=== PATIENT | female | born 1955 | race Caucasian/White ===

== ENCOUNTER 2021-02-25 14:52 | Outpatient (REF) | payer MEDICARE, SELFPAY ==
--- NOTE | ~2021-02-25 | MM_ITS ---
EXAMINATION: MM SCREENING DIGITAL BREAST TOMOSYNTHESIS, BILATERAL CLINICAL INFORMATION: Screening. Asymptomatic. The lifetime risk of breast cancer based on the Tyrer-Cuzick Model is 7%. COMPARISON: Mammography: 12/23/2019, 12/17/2018, 11/21/2017 TECHNIQUE: Digital breast tomosynthesis is performed in both the craniocaudal and mediolateral oblique views along with computer-aided detection (CAD). Synthesized 2D images are generated from the tomosynthesis. FINDINGS: There are scattered areas of fibroglandular density (ACR BI-RADS breast composition Category b). There are no significant masses, abnormal calcifications, or other abnormalities. Parenchymal pattern is similar to prior exams. The axilla and skin contours are unremarkable. MM/MM tomosynthesis screening BI IMPRESSION: No mammographic evidence of malignancy. ASSESSMENT: BI-RADS 1: Negative RECOMMENDATION: Routine annual mammography screening. This patient's information was entered into a reminder system with a target due date for their next mammogram.
== END 2021-02-25 14:53 | disposition home or self-care (01) ==
LOC: HO.MAMMO 14:52
PROVIDERS: Visit Provider Internal Medicine
DX: Z12.31 Encounter for screening mammogram for malignant neoplasm of breast (principal)
CPT/HCPCS: 77063; 77067

== ENCOUNTER 2021-03-28 07:51 | Outpatient (REF) | payer MEDICARE, SELFPAY ==
[2021-03-28 08:40] LABS: MANUAL DIFF FLAG NO
[2021-03-28 08:57] LABS: Basophils Percent Auto 0.6 % (0-2); Eosinophils Absolute Auto 0.1 X10*3/uL (0.0-0.4); Eosinophils Percent Auto 1.4 % (0-4); Hematocrit 37.4 % (37-47); Hemoglobin 11.9 g/dl (12.0-16.0); Imm Gran Abs Auto 0.01 X10*3/uL (0.00-0.03); Imm Gran Pct Auto 0.3 % (0.0-0.4); Lymphocytes Absolute Auto 1.1 X10*3/uL (1.2-4.9); Lymphocytes Percent Auto 31.4 % (20-40); Mean Corpuscular HGB Conc 31.8 g/dl (31.0-35.0); Mean Corpuscular Hemoglobin 30.5 pg (27.0-33.0); Mean Corpuscular Volume 95.9 fL (80-98); Mean Platelet Volume 11.6 fL (9.4-12.3); Monocytes Absolute Auto 0.3 X10*3/uL (0.1-1.2); Monocytes Percent Auto 8.5 % (2-11); Neutrophils Percent Auto 57.8 % (45-73); Platelet Count 113 X10*3/uL (160-400); Red Cell Distribution Width 12.4 % (11.0-16.0); White Blood Count 3.5 X10*3/uL (4.8-10.8)
[2021-03-28 09:07] LABS: Alanine Aminotransferase 14 U/L (0-31); Albumin Level 4.1 g/dL (3.5-5.0); Alkaline Phosphatase 94 U/L (39-117); Anion Gap 9 (12-20); Aspartate Amino Transferase 24 U/L (5-31); Bilirubin Total 0.9 mg/dL (0.0-1.0); Blood Urea Nitrogen 14 mg/dL (9-16); Carbon Dioxide 29 mmol/L (22-29); Chloride 106 mmol/L (96-108); Cholesterol 222 mg/dL; Estimated Glomerular Filt Rate > 60; Glucose Fasting 89 mg/dL (60-99); HDL Cholesterol 76 mg/dL; LDL Cholesterol Calculated 137 mg/dl; Potassium 3.8 mmol/L (3.3-5.1); Sodium 140 mmol/L (135-145); Triglycerides 49 mg/dL
[2021-03-28 09:19] LABS: Glucose Urine UA NEG (NEG); Leukocyte Esterase Urine NEG (NEG); Nitrite Urine NEG (NEG); Specific Gravity - Urine 1.025 (1.005-1.025); Urine Blood 1+ (NEG); Urine Ketones NEG (NEG); Urine Protein TRACE MG/DL (NEG-TRACE)
[2021-03-28 09:20] LABS: TSH reflex Free T4 2.18 uIU/mL (0.32-4.0)
[2021-03-28 09:20] LABS: Appearance Urine HAZY; Color Urine YELLOW
[2021-03-28 09:33] LABS: Bacteria Urine TRACE /LPF; Mucus Urine 1+ /LPF; Squamous Epithelial Cell Urine 1+ /LPF; WBC Urine 0 /HPF (0-4)
== END 2021-03-28 07:52 | disposition home or self-care (01) ==
LOC: HO.LAB 07:51
PROVIDERS: PCP Internal Medicine; Visit Provider Internal Medicine
DX: Z00.01 Encounter for general adult medical examination with abnormal findings (principal); U07.1 COVID-19; R42 Dizziness and giddiness
CPT/HCPCS: 36415; 80053; 80061; 81001; 84443; 85025

== ENCOUNTER → 2021-04-04 15:49 | Outpatient (BNV) | payer MEDICARE, OTHER, SELFPAY | PROVIDERS: PCP Internal Medicine; Referring Provider Internal Medicine; Visit Provider Internal Medicine | DX: D69.6 Thrombocytopenia, unspecified (principal); D61.818 Other pancytopenia | CPT/HCPCS: 99213 ==

== ENCOUNTER → 2021-05-03 14:45 | Outpatient (BNVA) | payer MEDICARE, SELFPAY | PROVIDERS: PCP Internal Medicine; Visit Provider Advanced Practice Midwife ==

== ENCOUNTER 2022-03-03 10:54 | Outpatient (REF) | payer OTHER, SELFPAY ==
--- NOTE | ~2022-03-03 | MM_ITS ---
EXAMINATION: MM SCREENING DIGITAL BREAST TOMOSYNTHESIS, BILATERAL CLINICAL INFORMATION: Screening. Asymptomatic. The lifetime risk of breast cancer based on the Tyrer-Cuzick Model is 5%. COMPARISON: Mammography: 02/25/2021, 12/23/2019, 12/17/2018 TECHNIQUE: Digital breast tomosynthesis is performed in both the craniocaudal and mediolateral oblique views along with computer-aided detection (CAD). Synthesized 2D images are generated from the tomosynthesis. FINDINGS: There are scattered areas of fibroglandular density (ACR BI-RADS breast composition Category b). There are no significant masses, abnormal calcifications, or other abnormalities. Parenchymal pattern is similar to prior exams. No developing density. The axilla and skin contours are unremarkable. No significant changes. MM/MM tomosynthesis screening BI IMPRESSION: No mammographic evidence of malignancy. ASSESSMENT: BI-RADS 1: Negative RECOMMENDATION: Routine annual mammography screening. This patient's information was entered into a reminder system with a target due date for their next mammogram.
== END 2022-03-03 10:55 | disposition home or self-care (01) ==
LOC: HO.MAMMO 10:54
PROVIDERS: PCP Internal Medicine; Visit Provider Internal Medicine
DX: Z12.31 Encounter for screening mammogram for malignant neoplasm of breast (principal)
CPT/HCPCS: 77063; 77067

== ENCOUNTER 2022-03-27 08:36 | Outpatient (REF) | payer OTHER, SELFPAY ==
[2022-03-27 11:09] LABS: MANUAL DIFF FLAG NO
[2022-03-27 11:19] LABS: Basophils Percent Auto 0.5 % (0-2); Eosinophils Absolute Auto 0.1 X10*3/uL (0.0-0.4); Eosinophils Percent Auto 1.5 % (0-4); Hematocrit 37.2 % (37.0-47.0); Hemoglobin 11.8 g/dl (12.0-16.0); Imm Gran Abs Auto 0.01 X10*3/uL (0.00-0.03); Imm Gran Pct Auto 0.2 % (0.0-0.4); Lymphocytes Absolute Auto 1.1 X10*3/uL (1.2-4.9); Lymphocytes Percent Auto 26.6 % (20-40); Mean Corpuscular HGB Conc 31.7 g/dl (31.0-35.0); Mean Corpuscular Hemoglobin 30.3 pg (27.0-33.0); Mean Corpuscular Volume 95.4 fL (80.0-98.0); Mean Platelet Volume 12.3 fL (9.4-12.3); Monocytes Absolute Auto 0.4 X10*3/uL (0.1-1.2); Monocytes Percent Auto 10.1 % (2-11); Neutrophils Absolute Auto 2.5 x10*3/uL (2.0-8.3); Neutrophils Percent Auto 61.1 % (45-73); Platelet Count 133 X10*3/uL (160-400); Red Cell Distribution Width 12.8 % (11.0-16.0); White Blood Count 4.1 X10*3/uL (4.8-10.8)
[2022-03-27 12:03] LABS: Alanine Aminotransferase 15 U/L (0-31); Albumin Level 4.3 g/dL (3.5-5.0); Alkaline Phosphatase 108 U/L (39-117); Anion Gap 15 (12-20); Aspartate Amino Transferase 23 U/L (5-31); Bilirubin Total 0.5 mg/dL (0.0-1.0); Blood Urea Nitrogen 14 mg/dL (9-16); Calcium 9.2 mg/dL (8.4-10.2); Carbon Dioxide 27 mmol/L (22-29); Chloride 104 mmol/L (96-108); Cholesterol 219 mg/dL; Estimated Glomerular Filt Rate > 60; Glucose Fasting 87 mg/dL (60-99); HDL Cholesterol 67 mg/dL; LDL Cholesterol Calculated 142 mg/dl; Potassium 4.7 mmol/L (3.3-5.1); Sodium 141 mmol/L (135-145); Total Protein 7.6 g/dL (6.5-8.0); Triglycerides 53 mg/dL
[2022-03-27 12:04] LABS: TSH reflex Free T4 2.04 uIU/mL (0.32-4.0)
[2022-03-31 12:02] LABS: Vitamin D 25-OH, D2 <4 ng/mL; Vitamin D 25-OH, D3 25 ng/mL; Vitamin D 25-OH, Total 25 ng/mL (30-100)
== END 2022-03-27 08:37 | disposition home or self-care (01) ==
LOC: HO.HMGCLDS 08:36
PROVIDERS: PCP Internal Medicine; Visit Provider Internal Medicine
DX: Z00.01 Encounter for general adult medical examination with abnormal findings (principal); L81.7 Pigmented purpuric dermatosis
CPT/HCPCS: 36415; 80053; 80061; 82306; 84443; 85025

== ENCOUNTER 2022-11-07 12:46 | Outpatient (REF) | payer OTHER, SELFPAY ==
--- NOTE | ~2022-11-07 | MM_ITS ---
EXAMINATION: BONE DENSITOMETRY CLINICAL INDICATION: Menopause. COMPARISON: This is the patient's baseline examination. TECHNIQUE: Using a [employer] DXA System (software version: 13.1) manufactured by [employer], dual-energy x-ray absorptiometry was performed of the lumbar spine and left hip. The images are of good technical quality. Summary results are attached. FINDINGS: AP SPINE L1-L4: BMD 0.935 g/cm2, Z-score 1.0, T-score -2.0, osteopenia. LEFT FEMUR, NECK: BMD 1.001 g/cm2, Z-score 0.9, T-score -0.3, normal. LEFT FEMUR, TOTAL: BMD 0.950 g/cm2, Z-score 0.4, T-score -0.5, normal. IDENTIFIED RISK FACTORS: Early menopause, height loss, secondary osteoporosis. HISTORY OF FRACTURE: None listed. MEDICATIONS: Multivitamin, vitamin D. MM/XR DEXA axial skeleton IMPRESSION: 1. DIAGNOSIS: Osteopenia based on the lowest T-score value of -2.0 in the lumbar spine applying World Health Organization criteria. 2. 10-YEAR FRACTURE RISK PREDICTION, FRAX: Major osteoporotic fracture (clinical spine, forearm, hip or shoulder) 4.0%. Hip fracture 0.2%. 3. Treatment Recommendations: NOF guidelines recommend consideration for treatment in postmenopausal women and men age 50 and older presenting with the following: -A hip or vertebral (clinical or morphometric) fracture. -T-score less than or equal to -2.5 at the femoral neck or spine after appropriate evaluation to exclude secondary causes. -Low bone mass at the hip or spine and a 10-year fracture probability by FRAX of greater than or equal to 3% for hip fracture or greater than or equal to 20% for major osteoporotic fracture based on the [place] adapted WHO algorithm. 4. Other Recommendations: All treatment decisions require clinical judgment and consideration of individual patient factors, including patient preferences, comorbidities, previous drug use, risk factors not captured in the FRAX model (e.g. frailty, falls, vitamin D deficiency, increased bone turnover, interval significant decline in bone density) and possible under or overestimation of fracture risk by FRAX. Additional medical evaluation for secondary cause of low bone mineral density may be appropriate. FUTURE SCAN RECOMMENDATION: People with diagnosed cases of osteoporosis or at high risk for fracture should have regular bone mineral density tests. For patients eligible for Medicare, routine testing is allowed once every 2 years. The testing frequency can be increased to one year for patients who have rapidly progressing disease, those who are receiving or discontinuing medical therapy to restore bone mass, or have additional risk factors.
== END 2022-11-07 12:47 | disposition home or self-care (01) ==
LOC: HO.MAMMO 12:46
PROVIDERS: PCP Internal Medicine; Visit Provider Advanced Practice Midwife
DX: Z13.820 Encounter for screening for osteoporosis (principal); Z78.0 Asymptomatic menopausal state
CPT/HCPCS: 77080

== ENCOUNTER 2023-03-16 14:53 | Outpatient (REF) | payer OTHER, SELFPAY ==
--- NOTE | ~2023-03-16 | MM_ITS ---
EXAMINATION: MM SCREENING DIGITAL BREAST TOMOSYNTHESIS, BILATERAL CLINICAL INFORMATION: Screening. Asymptomatic. The lifetime risk of breast cancer based on the Tyrer-Cuzick Model is 4%. COMPARISON: Mammography: 03/03/2022, 02/25/2021, 12/23/2019 TECHNIQUE: Digital breast tomosynthesis is performed in both the craniocaudal and mediolateral oblique views along with computer-aided detection (CAD). Synthesized 2D images are generated from the tomosynthesis. Additional left CC view is provided. FINDINGS: There are scattered areas of fibroglandular density (ACR BI-RADS breast composition Category b). There are no significant masses, abnormal calcifications, or other abnormalities. Parenchymal pattern is similar to prior studies. There is no developing density or architectural abnormality. The axilla and skin contours are unremarkable. No significant changes. MM/MM tomosynthesis screening BI IMPRESSION: No mammographic evidence of malignancy. ASSESSMENT: BI-RADS 1: Negative RECOMMENDATION: Routine annual mammography screening. This patient's information was entered into a reminder system with a target due date for their next mammogram.
== END 2023-03-16 14:54 | disposition home or self-care (01) ==
LOC: HO.MAMMO 14:53
PROVIDERS: Visit Provider Internal Medicine
DX: Z12.31 Encounter for screening mammogram for malignant neoplasm of breast (principal)
CPT/HCPCS: 77063; 77067

== ENCOUNTER 2023-10-02 12:28 | Outpatient (REF) | payer OTHER, SELFPAY ==
[2023-10-06 00:48] LABS: HPV 16 RNA NOT DETECTED (NOT DETECTED); HPV mRNA E6/E7 rflx Detected (Not Detected)
== END 2023-10-02 12:29 | disposition home or self-care (01) ==
LOC: HO.LNP 12:28
PROVIDERS: PCP Internal Medicine; Visit Provider Advanced Practice Midwife
DX: Z01.419 Encounter for gynecological examination (general) (routine) without abnormal findings (principal); Z11.51 Encounter for screening for human papillomavirus (HPV); N95.9 Unspecified menopausal and perimenopausal disorder
CPT/HCPCS: 87624; 87625; 88142

== ENCOUNTER 2023-10-02 12:28 | Outpatient (AMB) | payer OTHER, SELFPAY ==
--- NOTE | 2023-10-02 13:01 | MHC.OFFVIS ---
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 She is doing well with no concerns. Attempting to eat a healthy diet with calcium and vitamin D and stays active with exercise. Currently sexually active. Denies any vaginal dryness or irritation. Last pap smear; 2018 Last mammogram; UTD. Colonoscopy is UTD. Denies any family history of breast, ovarian or colon cancer. 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 Cognitive needs: No Hearing needs: No Vision needs: Yes Female Reproductive History Menstrual Age of Menarche: 14 control method: permanent sterilization Total pregnancies: 3 Full term: 2 Number of Living Children: 2 Ab induced: 1 Date of last pap smear: 04/09/18 (negative) History of abnormal pap smear: No Date of Mammogram: 03/16/23 Date of last Bone Density Screenin11/07/22 Review of Systems Const All systems reviewed & are unremarkable except as noted in HPI and below Reports as per HPI Eyes Reports no additional complaints ENT Reports no additional complaints Card Reports no additional complaints Resp Reports no additional complaints GI Reports as per HPI and Reports no additional complaints Reports as per HPI Musc Reports no additional complaints Skin/Breast Reports as per HPI Neuro Reports no additional complaints Psych Reports no additional complaints Endo Reports no additional complaints Elvin/Lymph Reports no additional complaints Aller/Immun Reports no additional complaints Physical Exam Vital Signs: Last Vital Signs BP 114/62 10/02/23 13:02 BMI result Body Mass Index 29.0 Const General: cooperative, healthy appearing, no acute distress, well developed and alert Orientation/consciousness: patient oriented x3 HEENT Head: Yes normal to inspection Eyes General: appearance normal, both eyes and all related structures Neck Neck: Yes normal visual inspection Thyroid: Thyroid normal Chest Chest palpation & inspection: normal inspection of the chest and other (no puckering, dimpling, peau de orange, retraction, discharge, masses) Breast/axilla inspection: normal inspection of the breasts Breast/axilla palpation: normal palpation of the breasts Resp Effort & Inspection: normal respiratory effort GI Inspection: Yes normal to inspection Palpation (GI): Soft to palpation Rectal Exam - Female: deferred General: Yes bladder normal to palpation External Female Exam: normal external appearance and normal appearance of the urethra Speculum Exam - Vagina: normal appearance of the vagina, normal palpation, normal vaginal discharge and vagina atrophic Speculum Exam - Cervix: normal appearance of the cervix and normal palpation Bimanual exam- vagina & uterus: normal bimanual exam, normal palpation, uterine size normal, bladder normal to palpation, normal palpation and non-tender Bimanual Exam- Adnexa, other: no masses Skin General skin exam: no rashes or lesions noted Rashes: no rashes Neuro General: patient oriented x3 Cognition (Neuro): normal cognition Extrem General: Yes normal to inspection Psych Attitude: cooperative Thought process: Normal thought process present Assessment & Plan Assessment & Plan (1) Encounter for well woman exam with routine gynecological exam: Code(s): Z01.419 - Encounter for gynecological examination (general) (routine) without abnormal findings Plan Discussed: Current recommendations for pap smears per ASCCP guidelines. Breast awareness, periodic self breast exams and yearly mammogram. Maintain a healthy lifestyle, well balanced diet including Calcium 1,200 mg and Vitamin D 600 IU daily, and routine exercise. Contact the office with any postmenopausal bleeding. All of her questions and concerns were addressed to the best of my ability. RTO in 1 year for annual dixonac operator exam. Coding Level of Care Code Est Pt Prev Care >65y(48860) Diagnoses Encounter for well woman exam with routine gynecological exam Z01.419
[2023-10-02 13:02] VITALS: BP 114/62; BMI 29.0
== END 2023-10-02 13:59 | disposition home or self-care (01) ==
LOC: HO.HWS 12:28
PROVIDERS: PCP Internal Medicine; Visit Provider Advanced Practice Midwife
DX: Z01.419 Encounter for gynecological examination (general) (routine) without abnormal findings (principal)
CPT/HCPCS: 99397

== ENCOUNTER 2023-11-06 09:52 | Outpatient (REF) | payer OTHER, SELFPAY | END 2023-11-06 09:53 | disposition home or self-care (01) | LOC: HO.LNP 09:52 | PROVIDERS: PCP Internal Medicine; Visit Provider Obstetrics & Gynecology | DX: R87.610 Atypical squamous cells of undetermined significance on cytologic smear of cervix (ASC-US) (principal); R87.810 Cervical high risk human papillomavirus (HPV) DNA test positive | CPT/HCPCS: 57454; 88305; 88342; 88360 ==

== ENCOUNTER 2023-11-06 09:52 | Outpatient (AMB) | payer OTHER, SELFPAY ==
--- NOTE | 2023-11-06 09:57 | A.OFFVIS_ITS ---
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 Present (Chanel) Allergies No Known Allergies Allergy (Verified 11/06/23 09:58) HPI HPI Comments History of Present Illness Details Presenting for abnormal Pap smear showing ascus/HPV E6/E7 positive, HPV 18/16/45 negative PFSH Surgical History History of appendectomy Hx of tubal ligation Family History Sister Liver cancer Brother Lung cancer Social History Household Members: Spouse Housing: House Alcohol intake: never Patient Tobacco Use Status: Never used Tobacco e-Cigarette/Vaping Use: Never Used Current occupational status: retired 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 Cognitive needs: No Hearing needs: No Vision needs: Yes Female Reproductive History Menstrual Age of Menarche: 14 Office Procedures Colposcopy Before the procedure was started discussed with the patient the procedure, alternatives & all the risks associated with the procedure (bleeding, infection, injury to vagina, bladder, vessels, possible need for transfusion with all its risks) then patient signed the consent Pap smear = ascus/HPV positive Speculum inserted, acetic acid used Colposcopy done Transformation zone seen, acetowhite lesions identified at 11+12+1+3 o?clock, cervical biopsies taken from 11+12+1+ o?clock, ECC done afterwards. Vaginoscopy of the upper vagina showed no evidence of any aceto-white lesions Monsel solution used for hemostasis. The patient tolerated well . At the end the patient was instructed to call if temp>100.4, abdominal pain, n/v, bleeding; The patient was given the following instructions: nothing per vagina, no intercourse or bath tub use. All questions answered the patient verbalized understanding. Instructed the patient to make an appointment in 2 weeks for follow-up This note was generated with a voice recognition program. Some errors may have been overlooked during the review of this note. Sometimes these errors may affect the content or meaning of a given sentence. [id number] of cervix including upper vagina with biopsy and ECC Procedure code (CPT) selection complete Assessment & Plan Assessment & Plan (1) ASCUS with positive high risk HPV cervical: Code(s): R87.610 - Atypical squamous cells of undetermined significance on cytologic smear of cervix (ASC-US); R87.810 - Cervical high risk human papillomavirus (HPV) DNA test positive Plan: Colposcopy done, see procedure note. Orders: Orders AMB Colposcopy Today R87.610 - Atypical squamous cells of undetermined significance on cytologic smear of cervix (ASC-US), R87.810 - Cervical high risk human papillomavirus (HPV) DNA test positive Coding Level of Care Code Procedure Only Diagnoses ASCUS with positive high risk HPV cervical R87.610; R87.810 CPT Codes Colposcopy - CPT: 05660-[id number] of cervix including upper vagina with biopsy and ECC ([id number])
[2023-11-06 09:58] VITALS: BP 100/60; BMI 29.0
== END 2023-11-06 10:30 | disposition home or self-care (01) ==
LOC: HO.HWS 09:52
PROVIDERS: PCP Internal Medicine; Visit Provider Obstetrics & Gynecology
DX: R87.610 Atypical squamous cells of undetermined significance on cytologic smear of cervix (ASC-US) (principal); R87.810 Cervical high risk human papillomavirus (HPV) DNA test positive
CPT/HCPCS: 57454

== ENCOUNTER 2023-11-28 10:51 | Outpatient (AMB) | payer OTHER, SELFPAY ==
--- NOTE | 2023-11-28 11:02 | A.OFFVIS_ITS ---
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 The patient is doing well with no complaints. The pathology showed the following: A. Endocervix, curettage: Atrophic squamous epithelium and small strips of endocervical epithelium within normal limits. B. Cervix, 1 o'clock, biopsy: Atrophic squamous mucosa with mild chronic inflammation; no endocervical epithelium identified. C. Cervix, 3 o'clock, biopsy: Atrophic squamous mucosa with mild chronic inflammation; no endocervical epithelium identified. D. Cervix, 11 o'clock, biopsy: Atrophic squamous mucosa with mild chronic inflammation; no endocervical epithelium identified. E. Cervix, 12 o'clock, biopsy: Atrophic squamous mucosa with mild chronic inflammation; no endocervical epithelium identified. 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 Cognitive needs: No Hearing needs: No Vision needs: Yes Female Reproductive History Menstrual Age of Menarche: 14 Review of Systems Const All systems reviewed & are unremarkable except as noted in HPI and below Reports as per HPI and Reports no additional complaints GI Reports no additional complaints Reports no additional complaints Physical Exam Vital Signs: Last Vital Signs BP 110/60 11/28/23 11:06 BMI result Body Mass Index 28.7 Assessment & Plan Assessment & Plan (1) ASCUS with positive high risk HPV cervical: Code(s): R87.610 - Atypical squamous cells of undetermined significance on cytologic smear of cervix (ASC-US); R87.810 - Cervical high risk human papillomavirus (HPV) DNA test positive Plan: Discussed with the patient the pathology results of the colposcopy biopsies & endocervical curettage ( negative). Discussed with the patient the sensitivity specificity, positive and negative predictive value in detecting cervical cancer in addition discussed the regression, persistence and progression rates. Recommended co-testing in 12 months, if cytology and or HPV are abnormal will proceed was colposcopy biopsy and endocervical curettage. Instructions given to the patient to schedule a co test appointment in 1 year. All questions answered the patient verbalized understanding. Coding Level of Care Code Est Pt Level 3 (99401) Diagnoses ASCUS with positive high risk HPV cervical R87.610; R87.810
[2023-11-28 11:06] VITALS: BP 110/60; BMI 28.7
== END 2023-11-28 11:34 | disposition home or self-care (01) ==
LOC: HO.HWS 10:51
PROVIDERS: PCP Internal Medicine; Visit Provider Obstetrics & Gynecology
DX: R87.610 Atypical squamous cells of undetermined significance on cytologic smear of cervix (ASC-US) (principal); R87.810 Cervical high risk human papillomavirus (HPV) DNA test positive
CPT/HCPCS: 99213

== ENCOUNTER → 2023-11-28 10:51 | Outpatient (BNVA) | payer OTHER, SELFPAY | PROVIDERS: PCP Internal Medicine; Visit Provider Obstetrics & Gynecology | DX: R87.610 Atypical squamous cells of undetermined significance on cytologic smear of cervix (ASC-US) (principal); R87.810 Cervical high risk human papillomavirus (HPV) DNA test positive | CPT/HCPCS: 99212 ==

== ENCOUNTER 2023-12-04 12:13 | Outpatient (AMB) | payer OTHER, SELFPAY ==
[2023-12-04 12:15] VITALS: BP 112/72; PULSE 84; O2SAT 95; BMI 29.3
--- NOTE | 2023-12-04 12:15 | A.OFFPC_ITS ---
Vital Signs 12/04/23 12:15 Height 5 ft 7 in Weight 187 lb 6 oz BMI 29.3 BP 112/72 Blood Pressure Location Rt brachial Position Sitting Pulse 84 Pulse Source Pulse Oximeter Pulse Oximetry (%) 95 Oxygen Delivery Method Room Air Intake Visit Reasons: Physical exam Allergies No Known Allergies Allergy (Verified 12/04/23 12:24) Medication List - Last Reconciled 12/04/23 by Yuliya Hardy MD ascorbic acid (vitamin C) (Vitamin C) 200 mg PO DAILY meclizine 25 mg PO BID-TID PRN 90 days multivitamin 1 tab PO DAILY Tobacco use date assessed: 12/04/23 Fall risk assessment: No Falls in past year Last assessed Fall Risk: 12/04/23 Dental Screening Dental Screen Date: 12/04/23 Did you have a dental visit in the last 12 months?: Yes Did you have a dental problem in the last 6 months where you did not have access to dental care?: No Was dental information given to patient?: Patient has dentist HPI Physical exam HPI Details Physical exam appointment Patient has chronic vertigo off and on, she is requesting a refill on meclizine She is also going on a cruise for the 1st time, and is feeling very anxious, patient is requesting assistance with the medication I have sent buspirone 5 mg tablet patient may take 1 or 2 in the morning Colonoscopy was September of 2020 Pap smear OBGYN Mammogram will be in February Lab order placed to be done fasting Breast exam today no lumps were felt PFSH Surgical History History of appendectomy Hx of tubal ligation Family History Sister Liver cancer Brother Lung cancer Social History Household Members: Spouse Housing: House Alcohol intake: never Patient Tobacco Use Status: Never used Tobacco e-Cigarette/Vaping Use: Never Used Current occupational status: retired 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 1. Little interest or pleasure in doing things: not at all 2. Feeling down, depressed, or hopeless: not at all 3. Trouble falling or staying asleep, or sleeping too much: not at all 4. Feeling tired or having little energy: not at all 5. Poor appetite or overeating: not at all 6. Feeling bad about yourself - or that you are a failure or have let yourself or your family down: not at all 7. Trouble concentrating on things, such as reading the newspaper or watching television: not at all 8. Moving or speaking so slowly that other people could have noticed. Or the opposite - being so fidgety or restless that you have been moving around a lot more than usual: not at all 9. Thoughts that you would be better off or of hurting yourself in some way: not at all Total score: 0 Depression Screening Interpretation: Negative Depression Screening Done: Yes 68168 - PHQ-9 Billing: Yes Source: Developed by Drs. Ronnie Garcia, Kunal Nazario and colleagues, with an educational nichole from [employer]. Thrive Questionnaire Date Thrive assessed: 12/28/21 AUDIT C Alcohol Use Questionnaire (AUDIT-C) 1. How often do you have a drink containing alcohol?: Never 3. How often do you have six or more drinks on one occasion?: Never Total Score: 0 Score Reviewed/Action Taken: Yes CHUYITA-7 AMB Questionnaire CHUYITA-7 Date CHUYITA - 7 assessed: 12/28/21 Source: Developed by Drs. Ronnie Garcia, Kunal Nazario and colleagues, with an educational nichole from [employer]. Review of Systems Const Denies chills, Denies fever(s) and Denies headache(s) Eyes Denies blurry vision ENT Denies headache(s), Denies nasal discharge, Denies nasal obstruction, Denies odynophagia and Denies sinus pain Card Denies chest pain at rest and Denies chest pain with activity Resp Denies cough and Denies hemoptysis GI Denies diarrhea, Denies odynophagia, Denies vomiting and Denies hematemesis Reports as per HPI Musc Denies abnormal gait Skin/Breast Reports as per HPI Neuro Denies Neuro-related abnormal movements, Denies Abnormal speech present, Denies abnormal gait, Denies headache(s) and Denies Sensory deficit (Neuro) Psych Denies mood swings and Denies paranoia Endo Reports as per HPI Elvin/Lymph Reports as per HPI Aller/Immun Reports as per HPI Physical exam (Primary Care) Vital Signs: Last Vital Signs Pulse 84 12/04/23 12:15 BP 112/72 12/04/23 12:15 Pulse Ox 95 12/04/23 12:15 Oxygen Delivery Method Room Air 12/04/23 12:15 BMI result Body Mass Index 29.3 Tobacco/Smoking Status: Tobacco use Status Tobacco use date assessed 12/04/23 12/04/23 12:25 Patient Tobacco Use Status Never used Tobacco 12/04/23 12:15 e-Cigarette/Vaping Use Never Used 12/04/23 12:15 Depression Screening Interpretation: Negative Thrive Assessment: Date of Thrive Assessment Date Thrive assessed 12/28/21 12/04/23 12:15 Const General: cooperative, comfortable and no acute distress Orientation/consciousness: patient oriented x3 HENMT Head: Yes normocephalic and Yes atraumatic Eyes General: appearance normal, both eyes and all related structures Pupils: Equal, round and reactive pupils present EOM: EOMs intact bilaterally Neck Neck: Yes supple and No lymphadenopathy Thyroid: Thyroid normal Lymphatic: no lymphadenopathy noted Chest Breast/axilla palpation: normal palpation of the breasts Resp Effort & Inspection: normal respiratory effort and able to speak in complete sentences Auscultation: clear to auscultation bilaterally Cardio Heart sounds: S1 normal heart sound present and S2 normal heart sound present GI Palpation (GI): Soft to palpation and nontender Auscultation: normal bowel sounds General: Yes no CVA tenderness Back/Spine/Pelvis Back: no CVA tenderness Skin General skin exam: elasticity normal and turgor normal Neuro General: patient oriented x3 and gait normal Cranial nerves: Yes Equal, round and reactive pupils present Speech: No Abnormal speech present Sensory Exam: No Sensory deficit (Neuro) Coordination: tandem gait normal and Romberg test negative Extrem General: Yes normal exam except as noted and No edema Assessment and Plan Assessment & Plan (1) Encounter for general adult medical examination with abnormal findings: Code(s): Z00.01 - Encounter for general adult medical examination with abnormal findings (2) Neutropenia: Code(s): D70.9 - Neutropenia, unspecified Qualifiers: Neutropenia type: unspecified Qualified Code(s): D70.9 - Neutropenia, unspecified (3) Thrombocytopenia: Code(s): D69.6 - Thrombocytopenia, unspecified (4) Vertigo: Code(s): R42 - Dizziness and giddiness (5) Overweight (BMI 25.0-29.9): Code(s): E66.3 - Overweight Plan Physical exam appointment Patient has chronic vertigo off and on, she is requesting a refill on meclizine She is also going on a cruise for the 1st time, and is feeling very anxious, patient is requesting assistance with the medication I have sent buspirone 5 mg tablet patient may take 1 or 2 in the morning Colonoscopy was September of 2020 Pap smear OBGYN Mammogram will be in February Lab order placed to be done fasting Patient does have pancytopenia which is stable Breast exam today no lumps were felt Orders: Orders Complete Blood Count Auto Diff Today D69.6 - Thrombocytopenia, unspecified, D70.9 - Neutropenia, unspecified, E66.3 - Overweight, R42 - Dizziness and giddiness, Z00.01 - Encounter for general adult medical examination with abnormal findings Comprehensive [place]. Panel Fast Today D69.6 - Thrombocytopenia, unspecified, D70.9 - Neutropenia, unspecified, E66.3 - Overweight, R42 - Dizziness and giddiness, Z00.01 - Encounter for general adult medical examination with abnormal findings Lipid Panel Today D69.6 - Thrombocytopenia, unspecified, D70.9 - Neutropenia, unspecified, E66.3 - Overweight, R42 - Dizziness and giddiness, Z00.01 - Encounter for general adult medical examination with abnormal findings Medications: New buspirone 5 mg PO TID PRN 30 tabs 0RF anxiety 30 days Refilled meclizine 25 mg PO BID-TID PRN 90 tabs 1RF dizziness 90 days R42 - Dizziness and giddiness Coding Level of Care Code Est Pt Prev Care >65y(46249) Diagnoses Encounter for general adult medical examination with abnormal findings Z00.01 Neutropenia, unspecified type D70.9 Neutropenia type: unspecified Thrombocytopenia D69.6 Vertigo R42 Overweight (BMI 25.0-29.9) E66.3
== END 2023-12-04 12:49 | disposition home or self-care (01) ==
PROVIDERS: PCP Internal Medicine; Visit Provider Internal Medicine
DX: Z00.00 Encounter for general adult medical examination without abnormal findings (principal); D70.9 Neutropenia, unspecified; D69.6 Thrombocytopenia, unspecified; R42 Dizziness and giddiness; E66.3 Overweight; Z68.29 Body mass index [BMI] 29.0-29.9, adult
CPT/HCPCS: 99397

== ENCOUNTER 2023-12-24 12:01 | Outpatient (REF) | payer OTHER, SELFPAY ==
[2023-12-24 12:17] LABS: MANUAL DIFF FLAG NO
[2023-12-24 12:58] LABS: Basophils Percent Auto 0.7 % (0-2); Eosinophils Absolute Auto 0.1 X10*3/uL (0.0-0.4); Eosinophils Percent Auto 2.7 % (0-4); Hematocrit 38.5 % (37.0-47.0); Hemoglobin 12.8 g/dl (12.0-16.0); Imm Gran Abs Auto 0.01 X10*3/uL (0.00-0.03); Imm Gran Pct Auto 0.2 % (0.0-0.4); Lymphocytes Absolute Auto 1.2 X10*3/uL (1.2-4.9); Lymphocytes Percent Auto 26.4 % (20-40); Mean Corpuscular HGB Conc 33.2 g/dl (31.0-35.0); Mean Corpuscular Hemoglobin 31.3 pg (27.0-33.0); Mean Corpuscular Volume 94.1 fL (80.0-98.0); Mean Platelet Volume 11.3 fL (9.4-12.3); Monocytes Absolute Auto 0.5 X10*3/uL (0.1-1.2); Monocytes Percent Auto 10.7 % (2-11); Neutrophils Absolute Auto 2.7 x10*3/uL (2.0-8.3); Neutrophils Percent Auto 59.3 % (45-73); Platelet Count 151 X10*3/uL (160-400); Red Blood Count 4.09 X10*6/uL (4.20-5.50); Red Cell Distribution Width 11.9 % (11.0-16.0); White Blood Count 4.5 X10*3/uL (4.8-10.8)
[2023-12-24 13:44] LABS: Alanine Aminotransferase 16 U/L (0-31); Albumin Level 4.3 g/dL (3.5-5.0); Alkaline Phosphatase 115 U/L (39-117); Anion Gap 10 (12-20); Aspartate Amino Transferase 25 U/L (5-31); Bilirubin Total 0.5 mg/dL (0.0-1.0); Blood Urea Nitrogen 12 mg/dL (9-16); Calcium 9.6 mg/dL (8.4-10.2); Carbon Dioxide 30 mmol/L (22-29); Chloride 102 mmol/L (96-108); Cholesterol 226 mg/dL (<200); Estimated Glomerular Filt Rate > 60; Glucose Fasting 84 mg/dL (60-99); HDL Cholesterol 70 mg/dL (>40); LDL Cholesterol Calculated 144 mg/dL (<100); Potassium 4.7 mmol/L (3.3-5.1); Sodium 137 mmol/L (135-145); Total Protein 8.2 g/dL (6.5-8.0); Triglycerides 64 mg/dL (<150)
== END 2023-12-24 12:02 | disposition home or self-care (01) ==
LOC: HO.LAB 12:01
PROVIDERS: PCP Internal Medicine; Visit Provider Internal Medicine
DX: Z00.01 Encounter for general adult medical examination with abnormal findings (principal); R42 Dizziness and giddiness; D70.9 Neutropenia, unspecified; D69.6 Thrombocytopenia, unspecified; E66.3 Overweight
CPT/HCPCS: 36415; 80053; 80061; 85025

== ENCOUNTER 2024-03-20 12:42 | Outpatient (REF) | payer OTHER, SELFPAY | END 2024-03-20 12:43 | disposition home or self-care (01) | LOC: HO.MAMMO 12:42 | PROVIDERS: PCP Internal Medicine; Visit Provider Internal Medicine | DX: Z12.31 Encounter for screening mammogram for malignant neoplasm of breast (principal) | CPT/HCPCS: 77063; 77067 ==

== ENCOUNTER → 2024-03-20 13:00 | Outpatient (BNV) | payer OTHER, SELFPAY | PROVIDERS: PCP Internal Medicine; Visit Provider Radiology Diagnostic Radiology | DX: Z12.31 Encounter for screening mammogram for malignant neoplasm of breast (principal) | CPT/HCPCS: 77063; 77067 ==

== ENCOUNTER 2024-12-03 10:43 | Outpatient (AMB) | payer MEDICARE, SELFPAY ==
[2024-12-03 10:55] VITALS: BP 120/82; BMI 28.5
--- NOTE | 2024-12-03 10:55 | MHC.OFFVIS ---
Vital Signs 12/03/24 10:55 Height 5 ft 7 in Weight 182 lb BMI 28.5 BP 120/82 Intake Visit Reasons: annual/cotest Professional Development Manager Required: No Information Interpreted: non-clinical & clinical Recoating Machine Operator: Recoating Machine Operator Present (Chanel GUERRERO) Accompanied by: Self / Same As Patient Allergies No Known Allergies Allergy (Verified 12/03/24 11:01) Post menopausal: Yes HPI Comments Details: Presenting for annual exam. No complaints. Last Pap/HPV in 10/13 was ascus/HPV positive, colpo biopsy was negative Last Mammogram was BI-RADS 1 in 03/14 Last DEXA scan was in 11/13 Last Colonoscopy was many years ago, the patient is due for another screening colonoscopy [facility] Medical History (Updated 12/03/24 @ 11:02 by Alexey Gao MD) ASCUS with positive high risk HPV cervical Surgical History History of appendectomy Hx of tubal ligation Family History Sister Liver cancer Brother Lung cancer Social History Household Members: Spouse Housing: House Alcohol intake: never Patient Tobacco Use Status: Never used Tobacco e-Cigarette/Vaping Use: Never Used Current occupational status: retired 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 Cognitive needs: No Hearing needs: No Vision needs: Yes Female Reproductive History Menstrual Age of Menarche: 14 control method: permanent sterilization Date of last pap smear: 10/03/23 History of abnormal pap smear: Yes (HPV +) Date of Mammogram: 03/20/24 Review of Systems Const All systems reviewed & are unremarkable except as noted in HPI and below Card Reports as per HPI Resp Reports as per HPI GI Reports as per HPI and Reports no additional complaints Reports as per HPI Physical Exam Vital Signs: Last Vital Signs BP 120/82 12/03/24 10:55 BMI result Body Mass Index 28.5 Const General: cooperative, healthy appearing and comfortable Chest Chest palpation & inspection: normal inspection of the chest and normal palpation of entire chest wall Breast/axilla inspection: normal inspection of the breasts and normal inspection of the axillae Breast/axilla palpation: normal palpation of the breasts, normal palpation of the axillae and no axillary lymphadenopathy Resp Effort & Inspection: normal respiratory effort Auscultation: clear to auscultation bilaterally Percussion: percussion normal Cardio Palpation: normal PMI Rate: regular rate Rhythm: regular rhythm Heart sounds: no murmurs and no rubs Peripheral pulses: Peripheral pulses 2+ throughout GI Inspection: Yes normal to inspection Palpation (GI): Soft to palpation, nontender, no guarding, not rigid and No hepatosplenomegaly present Percussion: Yes normal to percussion Auscultation: normal bowel sounds Rectal Exam - Female: deferred General: Yes bladder normal to palpation External Female Exam: No lesion Speculum Exam - Vagina: normal appearance of the vagina, normal palpation, normal vaginal discharge and not erythematous Speculum Exam - Cervix: normal appearance of the cervix and normal palpation Bimanual exam- vagina & uterus: normal bimanual exam, normal palpation, uterine size normal, bladder normal to palpation, consistency normal and normal palpation Bimanual Exam- Adnexa, other: normal adnexae, no masses and no tenderness Assessment & Plan Assessment & Plan (1) Well woman exam: Code(s): Z01.419 - Encounter for gynecological examination (general) (routine) without abnormal findings Category: Medical Plan: Cotesting done. Mammogram ordered for 03/15. GI referral for screening colonoscopy placed Counseled the patient about the recommended dietary allowance of 1000 mg of Calcium & 600 IU of vitamin D. Lynne's scan ordered, instructions given the patient to schedule the test and a 2 week follow-up appointment. The patient was instructed to perform monthly self-breast exams and to schedule an annual exam in a year; All questions answered and the patient verbalized understanding. Instructed the patient to schedule annual exam in a year Orders: Orders MM tomosynthesis screening BI 3 Months Z12.31 - Encounter for screening mammogram for malignant neoplasm of breast XR DEXA axial skeleton Today Z78.0 - Asymptomatic menopausal state Referrals Gastroenterology Referral Z12.11 - Encounter for screening for malignant neoplasm of colon Coding Level of Care Code Est Pt Prev Care >65y(44910) Diagnoses Well woman exam Z01.419
--- OUTSIDE RECORDS SUMMARY | 2024-12-03 12:31 | XMS_ITS | Encounter Summary ---
Author Organization [employer] [facility] Address [address] [place] [address] Care Team Providers Care Medical Office Receptionist Assistant Name Role Phone Unavailable Primary Care Provider Unavailabl e Encounter Details Date Type Department Care Team (Late st Contact Info) Description 11/16/2022 Abstract [facility] [address] [place] [address] Gregorio LawDEANNA [address] [place] [address] Social History Tobacco Use Types Packs/Day Years Used Date Smoking Tobacco: Never Passive Smoke Exposure: Never Smokeless Tobacco: Never Alcohol Use Standard Drinks/Week Comments Never 0 (1 standard drink = 0.6 oz pur e alcohol) Comments Unknown Sex and Gender Information Value Date Recorded Sex Assigned at Female 08/21/2022 10:22 AM EDT Legal Sex Female 10:22 AM EDT Gender Identity Female 08/21/2022 10:22 AM EDT Sexual Orientation Straight 08/21/2022 10 :22 AM EDT documented as of this encounter Plan of Treatment Upcoming Encounters Date Type Department Care Team (Late st Contact Info) Description 12/10/2024 10:30 AM EST Office Visit [facility] [address] [place] [address] Gregorio Law DEANNA [address] [place] [address] 02/16/2025 3:00 PM EDT Office Visit [facility] [address] [place] [address] Rosalie Copeland [address] [place] [address] documented as of this encounter Visit Diagnoses Not on filedocumented in this encounter
--- OUTSIDE RECORDS SUMMARY | 2024-12-03 12:31 | XMS_ITS | Encounter Summary ---
Author Organization [employer] Address [address] [place] [address] Care Team Providers Care Ceramic Products Sales Engineer Name Role Phone Unavailable Primary Care Provider Unavailabl e Reason for Visit * Reason Onset Date Comments Appointment 05/16/2023 Encounter Details Date Type Department Care Team (Late st Contact Info) Description 05/16/2023 Telephone [facility] [address] [place], [place] [phone] Dinorah, Rosalie [address] [place], [place] [phone] Appointment Social History Tobacco Use Types Packs/Day Years [...] AM EDT documented as of this encounter Miscellaneous Notes * Telephone Encounter - Tressa Moncada - 05/16/2023 10:58 AM EDT Patient has called in a few times inquiring on appt for prophy exam and xrays. Patient added to wait list and informed that she will get a call from office for appt. No room on PAR side. Patient is abit upset because she states she was due for this and it was supposed to be a quick appt. I did inform patient that I would relay information to office. I did remind patient they were still on the waiting list documented in this encounter Plan of Treatment Upcoming Encounters Date Type Department Care Team (Late st Contact Info) Description 12/10/2024 10:30 AM EST Office Visit [facility] [address] [place] [address] Gregorio Law DDS [address] [place] [address] 02/16/2025 3:00 PM EDT Office Visit [facility] [address] [place] [address] Rosalie Copeland [address] [place] [address] documented as of this encounter Visit Diagnoses Not on filedocumented in this encounter
--- OUTSIDE RECORDS SUMMARY | 2024-12-03 12:31 | XMS_ITS | Clinical Summary ---
Author Organization [employer] Address [address] [place] [address] Care Team Providers Care Investment Analyst Name Role Phone Unavailable Primary Care Provider Unavailabl e Allergies No known active allergies Medications meclizine (Antivert) 12.5 MG tablet Take 2 tablets by mouth every 8 (eight) hours. Active Active Problems Problem Noted Date Diagnosed Date Partial edentulism 03/18/2024 Generalized gingival recession 08/21/2023 Dental calculus 12/22/2022 Fractured tooth 09/29/2022 Dental caries 09/29/2022 Periodontal disease 09/29/2022 Encounters Date Type Department Care Team Description 11/28/2024 10:00 AM EST Office Visit [facility] [address] [place] [address] Gregorio Law DDS Partial edentulism, unspecified edentulism class (Primary Dx) 11/19/2024 11:00 AM EST Office Visit [facility] [address] [place] [address] Gregorio Law DDS Partial edentulism, unspecified edentulism class (Primary Dx) 09/12/2024 Telephone [facility] [address] [place] [address] Gregorio Law DDS 09/10/2024 Telephone [facility] [address] [place] [address] Rosalie Copeland insurance from Last 3 Months Social History Tobacco Use Types Packs/Day Years Used Date Smoking Tobacco: Never Passive Smoke Exposure: Never Smokeless Tobacco: Never Tobacco Cessation:Counseling Given: No Alcohol Use Standard Drinks/Week Comments Never 0 (1 standard drink = 0.6 oz pur e alcohol) Comments Unknown Sex and Gender Information Value Date Recorded Sex Assigned at Female 08/21/2022 10:22 AM EDT Legal Sex Female 10:22 AM EDT Gender Identity Female 08/21/2022 10:22 AM EDT Sexual Orientation Straight 08/21/2022 10 :22 AM EDT Last Filed Vital Signs Vital Sign Reading Time Taken Comments Blood Pressure 136/74 11/28/2024 9:43 AM EST Pulse 64 11/19/2024 10:54 AM EST Temperature - - Respiratory Rate - - Oxygen Saturation - - Inhaled Oxygen Concentration - - Weight - - Height - - Body Mass Index - - Plan of Treatment Upcoming Encounters Date Type Department Care Team (Late st Contact Info) Description 12/10/2024 10:30 AM EST Office Visit [facility] [address] [place] [address] Gregorio Law DDS [address] [place] [address] 02/16/2025 3:00 PM EDT Office Visit [facility] [address] [place] [address] Rosalie Copeland [address] [place] [address] Health Maintenance Due Date Last Done Comments CT Colonography 1955 Colonoscopy 1955 Colorectal Cancer Screening 1955 Depression Screening 1955 FIT DNA/Cologuard 1955 FIT 1955 FOBT 1955 SDOH Screening 1955 Sigmoidoscopy 1955 Alcohol/Substance Use Screening 1967 Hepatitis C Screening 1973 Mammogram 1995 Pneumococcal Vaccine: 50+ Years (1 of 1 - PCV) 2005 Zoster Vaccines (1 of 2) 2005 Dental X-Ray: Full Mouth 05/21/2023 05/20/2020 Dental Oral Exam 02/20/2024 08/21/2023, 09/29/2022 COVID-19 Vaccine (3 - 2023-2 5 season) 2024 07/13/2021, 06/22/2021 Influenza Vaccine (#1) 2024 Dental X-Ray: Bitewings 08/22/2024 08/21/20, 09/29/2022 Dental Prophylaxis 09/19/2024 03/18/2024, 08/21/2023, 09/29/2022 DTaP/Tdap/Td Vaccines (2 - T d or Tdap) 10/13/2025 10/13/2015 Tobacco Screening 11/28/2025 11/28/2024 RSV Patients and Patients Aged 60 years or older (1 - 1-dose 75+ series) 2030 HIB Vaccines Aged Out No longer eligi ble based on patient's age to complete this topic HPV Vaccines Aged Out No longer eligi ble based on patient's age to complete this topic Hepatitis A Vaccines Aged Out No long er eligible based on patient's age to complete this topic Hepatitis B Vaccines Aged Out No long er eligible based on patient's age to complete this topic IPV Vaccines Aged Out No longer eligi ble based on patient's age to complete this topic Meningococcal Vaccine Aged Out No mayda roosevelt eligible based on patient's age to complete this topic RSV under 20 months Aged Out No longe r eligible based on patient's age to complete this topic Rotavirus Vaccines Aged Out No longer eligible based on patient's age to complete this topic Procedures Procedure Name Priority Date/Time Associated Diagnosis Comments BITE REGISTRATION Routine 11/28/2024 10: 00 AM EST DENTURE IMPRESSION Routine 11/19/2024 11 :00 AM EST NO CHARGE VISIT Routine 11/19/2024 11:00 AM EST Full PROPHYLAXIS - ADULT Routine 024 3:00 PM EDT Dental calculus Periodontal disease BITEWINGS - 4 RADIOGRAPHIC IMAGES Routine 08/21/2023 1:00 PM EDT Dental calculus Generalized gingival recession Periodontal disease PERIODIC ORAL EVALUATION - ESTABLISHED PATIENT Routine 08/21/2023 1:00 PM EDT from Last 3 Months or Most Recently Relevant to Health Maintenance
--- OUTSIDE RECORDS SUMMARY | 2024-12-03 12:31 | XMS_ITS | Encounter Summary ---
Author Organization [employer] [facility] Address [address] [place] [address] Care Team Providers Care Riding Teacher Name Role Phone Unavailable Primary Care Provider Unavailabl e Encounter Details Date Type Department Care Team (Latest Contact Info) Description 03/18/2019 Abstract [facility] CONVERSIONS Dental, Provider, DDS Social History Tobacco Use Types Packs/Day Years Used Date Smoking Tobacco: Never Assessed Comments Unknown Sex and Gender Information Value [...] Description 12/10/2024 10:30 AM EST Office Visit [facility] [address] [place] [address] Gregorio Law DDS [address] [place] [address] 02/16/2025 3:00 PM EDT Office Visit [facility] [address] [place] [address] Kody Copelandaris [address] [place] [address] documented as of this encounter Visit Diagnoses Not on filedocumented in this encounter
--- OUTSIDE RECORDS SUMMARY | 2024-12-03 12:31 | XMS_ITS | Encounter Summary ---
Author Organization [facility] Address [address] [facility] 7 [place] [address] Care Team Providers Care Home Health Provider Name Role Phone Unavailable Primary Care Provider Unavailabl e Reason for Visit * Reason Comments Dentures Encounter Details Date Type Department Care Team (Late st Contact Info) Description 11/28/2024 10:00 AM EST Office Visit [facility] ADULT DENTAL [address] [place], [place] [phone] Gregorio Law DDS [address] [place], [place] [phone] Partial edentulism, unspecified edentulism class (Primary Dx) Social History Tobacco Use Types Packs/Day Years [...] AM EDT documented as of this encounter Last Filed Vital Signs Vital Sign Reading Time Taken Comments Blood Pressure 136/74 11/28/2024 9:43 AM EST Pulse - - Temperature - - Respiratory Rate - - Oxygen Saturation - - Inhaled Oxygen Concentration - - Weight - - Height - - Body Mass Index - - documented in this encounter Progress Notes * Gregorio Law DDS - 11/28/2024 10:00 AM EST Patient ID: Radha Turner is a 69 y.o. female. Time Out: No data recorded Location: [facility] Tooth: Maxilla Procedure: Dentures Verified the above with patient, orthodontist assistant, and provider. Confirmed via patient's chart, intraorally and by radiographs. Auto Vinyl Top Installer: not applicable Chief Complaint Patient presents with Dentures Medical Hx: Vitals: Blood pressure 136/74. Medications, Med Hx reviewed with patient and updated in chart. Consent Obtained: The risks, benefits, indications, potential complications, and alternatives were explained to the patient and informed consent was obtained with good understanding. Treatment Provided: Dental procedures in this visit D5110 - BITE REGISTRATION Occlusal Wax rims tried in & records taken: -Vertical Dimension -Midline -Interpupillary line -Occlusal Relationship -Smile Line -Canine [place] Bite Registration taken with: Wax Tooth Selection: [employer] Mould: Shade: A 2 Size: Sent to Lab for tooth set up in wax Lab used: [facility] Lab Due Date: 12-10-24 Patient discharged alert, oriented, and in stable condition. NV: Try in Cocoa Bean Roaster: Kim Howard Dentist: Gregorio Law DDS documented in this encounter Plan of Treatment Upcoming Encounters Date Type Department Care Team (Late st Contact Info) Description 12/10/2024 10:30 AM EST Office Visit [facility] ADULT DENTAL [address] [place] [address] Gregorio Law DDS [address] [place] [address] 02/16/2025 3:00 PM EDT Office Visit [facility] ADULT DENTAL [address] [place] [address] Rosalie Copeland [address] [place] [address] documented as of this encounter Procedures Procedure Name Priority Date/Time Associated Diagnosis Comments BITE REGISTRATION Routine 11/28/2024 10:00 AM EST documented in this encounter Visit Diagnoses Diagnosis Partial edentulism, unspecified edentulism class- Primary documented in this encounter
--- OUTSIDE RECORDS SUMMARY | 2024-12-03 12:31 | XMS_ITS | Encounter Summary ---
Author Organization [facility] Address [address] [facility] 7t [place] [address] Care Team Providers Care Carbon Rod Inserter Name Role Phone Unavailable Primary Care Provider Unavailabl e Encounter Details Date Type Department Care Team (Latest Contact Info) Description 02/01/2021 Abstract [facility] CONVERSIONS Dental, Provider, DDS Social History Tobacco [...] Description 12/10/2024 10:30 AM EST Office Visit [facility] ADULT DENTAL [address] [place] [address] Gregorio Law DDS [address] [place] [address] 02/16/2025 3:00 PM EDT Office Visit [facility] ADULT DENTAL [address] [place] [address] Kody Copelandaris [address] [place] [address] documented as of this encounter Visit Diagnoses Not on filedocumented in this encounter
--- OUTSIDE RECORDS SUMMARY | 2024-12-03 12:31 | XMS_ITS | Encounter Summary ---
Author Organization [facility] Address [address] [facility] 7 [place] [address] Care Team Providers Care Grease Remover Name Role Phone Unavailable Primary Care Provider Unavailabl e Reason for Visit * Reason Comments Dentures Encounter Details Date Type Department Care Team (Late st Contact Info) Description 11/19/2024 11:00 AM EST Office Visit [facility] ADULT DENTAL [address] [place], [place] [phone] Gregorio Law DDS [address] [place], [place] [phone] Partial edentulism, unspecified edentulism class (Primary Dx) [...] Sign Reading Time Taken Comments Blood Pressure 124/72 11/19/2024 10:54 AM EST Pulse 64 11/19/2024 10:54 AM EST Temperature - - Respiratory Rate - - Oxygen Saturation - - Inhaled Oxygen Concentration - - Weight - - Height - - Body Mass Index - - documented in this encounter Progress Notes * Gregorio Law DDS - 11/19/2024 11:00 AM EST Patient ID: Radha Turner is a 69 y.o. female. Time Out: Timeout Date: 11/19/24 (impression on upper partial only), Timeout Time: 1055 Location: [facility] Tooth: Maxilla and Mandible Procedure: Dentures Impressions Verified the above with patient, power plant assistant, and provider. Confirmed via patient's chart, intraorally and by radiographs. Photo Machine Operator: not applicable Chief Complaint Patient presents with Dentures Medical Hx: Vitals: Blood pressure 124/72, pulse 64. Medications, Med Hx reviewed with patient and updated in chart. Consent Obtained: The risks, benefits, indications, potential complications, and alternatives were explained to the patient and informed consent was obtained with good understanding. Treatment Provided: Dental procedures in this visit D9999 - NO CHARGE VISIT (Completed) Service provider: Gregorio Law DDS Billing provider: Gregorio Law DDS D5750 - DENTURE IMPRESSION (Completed) Service provider: Gregorio Law DDS Billing provider: Gregorio Law DDS Per pt. Request to fabricate max. RPD ONLY. Self pay (lost max. In good condition dana.) New X rays, MARCI and cleaning are due and recommended. Pt declined for financial reason. Impression taken with Alginate of Maxilla and Mandible Case sent to lab to fabricate custom trays. Lab used: [facility]. Lab Due Date: 11-26-24 Patient discharged alert, oriented, and in stable condition. NV: Bite reg Contact Lens Fitter: Kim Howard Dentist: Gregorio Law DDS documented in this encounter Plan of Treatment Upcoming Encounters Date Type Department Care Team (Late st Contact Info) Description 12/10/2024 10:30 AM EST Office Visit [facility] ADULT DENTAL [address] [place] [address] Gregorio Law DDS [address] [place] [address] 02/16/2025 3:00 PM EDT Office Visit [facility] ADULT DENTAL [address] [place], [place] [phone] Rosalie Copeland [address] [place] [address] Scheduled Orders Name Type Priority Associated Diagnoses Orde r Schedule 3,6,10,14,15 3,6,10,14,15 MAXILLARY PARTIAL DENTURE - RESIN BASE (INCLUDING, RETENTIVE/CLASPING MATERIALS, RESTS, AND TEETH) Dental Routine [address] arting 11/19/2024 WAX TRY IN Dental Routine 1 Occurrences starting 11/19/2024 documented as of this encounter Procedures Procedure Name Priority Date/Time Associated Diagnosis Comments DENTURE IMPRESSION Routine 11/19/2024 11:00 AM EST NO CHARGE VISIT Routine 11/19/2024 11:00 AM EST documented in this encounter Visit Diagnoses Diagnosis Partial edentulism, unspecified edentulism class- Primary documented in this encounter
--- OUTSIDE RECORDS SUMMARY | 2024-12-03 12:31 | XMS_ITS | Encounter Summary ---
Author Organization [facility] Address [address] [facility] 7t [place] [address] Care Team Providers Care Mosaicist Name Role Phone Unavailable Primary Care Provider Unavailabl e Encounter Details Date Type Department Care Team (Late st Contact Info) Description 09/21/[address] [facility] ADULT DENTAL [address] [place] [address] Dental, Provider, DDS Social History Tobacco Use [...] Description 12/10/2024 10:30 AM EST Office [address] [facility] ADULT DENTAL [address] [place] [address] Gregorio Law DDS [address] [place] [address] 02/16/2025 3:00 PM EDT Office Visit [facility] ADULT DENTAL [address] [place] [address] Kody Copelandaris [address] [place] [address] documented as of this encounter Procedures Procedure Name Priority Date/Time Associated Diagnosis Comments 18,19,30,31 PARTIAL DENTURE - RESIN Routine 09/21/2022 12:00 AM EST 3,6,10,14,15 PARTIAL DENTURE - RESIN Routine 09/21/2022 12:00 AM EST 9 DL COMPOSITE FILLING Routine 12:00 AM EST 8 MIDFL COMPOSITE FILLING Routine 09/21/2022 12:00 AM EST 7 ML COMPOSITE FILLING Routine 12:00 AM EST 29 O AMALGAM FILLING Routine 09/21/2022 12:00 AM EST 28 O AMALGAM FILLING Routine 09/21/2022 12:00 AM EST 20 O AMALGAM FILLING Routine 09/21/2022 12:00 AM EST 16 O AMALGAM FILLING Routine 09/21/2022 12:00 AM EST 13 MO AMALGAM FILLING Routine 09/21/2022 12:00 AM EST 5 MOD AMALGAM FILLING Routine 09/21/2022 12:00 AM EST 4 MO AMALGAM FILLING Routine 09/21/2022 12:00 AM EST 2 O AMALGAM FILLING Routine 09/21/2022 1 2:00 AM EST 31 EXTRACTION Routine 09/21/2022 12:00 AM EST 30 EXTRACTION Routine 09/21/2022 12:00 AM EST 19 EXTRACTION Routine 09/21/2022 12:00 AM EST 18 EXTRACTION Routine 09/21/2022 12:00 AM EST 17 EXTRACTION Routine 09/21/2022 12:00 AM EST 15 EXTRACTION Routine 09/21/2022 12:00 AM EST 14 EXTRACTION Routine 09/21/2022 12:00 AM EST 10 EXTRACTION Routine 09/21/2022 12:00 AM EST 6 EXTRACTION Routine 09/21/2022 12:00 AM EST 3 EXTRACTION Routine 09/21/2022 12:00 AM EST documented in this encounter Visit Diagnoses Not on filedocumented in this encounter
--- OUTSIDE RECORDS SUMMARY | 2024-12-03 12:31 | XMS_ITS | Clinical Summary ---
Author Organization [employer] [facility] ity Address [address] [place] [address] Care Team Providers Care Leasing Manager Name Role Phone Unavailable Primary Care Provider Unavailabl e Social History Tobacco Use Types Packs/Day Years Used Date Smoking Tobacco: Never Assessed Comments Unknown Sex and Gender Information Value Date Recorded Sex Assigned at Not on file Legal Sex Female 3:59 AM EST Gender Identity Not on file Sexual Orientation Not on file Plan of Treatment Health Maintenance Due Date Last Done Comments Breast Cancer Screening 1955 DTaP,Tdap,and Td Vaccines (1 - Tdap) 1974 Zoster Vaccines (1 of 2) 2005 Pneumococcal Vaccine: 50+ Ye ars (1 of 1 - PCV) 2020 COVID-19 Vaccine ( - 2023-2 5 season) 2024 Influenza Vaccine (#1) 2024 RSV Immunization Patients 60 + Years Old (1 - 1-dose 75+ series) 2030 HIB [...] on patient's age to complete this topic MMR Vaccines Aged Out No longer eligi ble based on patient's age to complete this topic Meningococcal ACWY Vaccine Aged Out N o longer eligible based on patient's age to complete this topic RSV Immunization Patients Un katina 20 months Aged Out No longer eligible b ased on patient's age to complete this topic Varicella Vaccines Aged Out No longer eligible based on patient's age to complete this topic
--- OUTSIDE RECORDS SUMMARY | 2024-12-03 12:32 | XMS_ITS ---
Author Organization [facility] Address [address] [place] [address] Care Team Providers Care Telephone Betting Clerk Name Role Phone Antony LAGOS, [facility] Primary Care Provider Ronnie Menard [phone] REASON FOR VISIT recall colonoscopy Encounters Encounter Location Date Provider Diagnosis [facility] [address] [place] [address] 11/18/2024 Ronnie Sharif PLAN OF TREATMENT Next Appt Details Provider Name:Ronnie Sharif , 12/10/2024 03:00:00 PM, [address], [address], [place], [address],
--- OUTSIDE RECORDS SUMMARY | 2024-12-03 12:32 | XMS_ITS | Patient Health Record ---
Author Organization [facility] Address [address] [place] [address] Care Team Providers Care Cake Icer Name Role Phone [facility]y LAGOS, [facility] Primary Care Provider Ronnie Menard [phone] REASON FOR REFERRAL No Information MEDICATIONS Medication SIG (Take, Route, Fr equency, Duration) Notes Start Date End Date Status Meclizine HCl 50 MG 1 tablet as needed Orally prn Active Bone Essentials - as directed Orally once a day Active Central-Audrey - as directed Orally once a day Active IMMUNIZATIONS Vaccine Route Administration Date Status Comme nts Influenza Unknown 09/24/2019 Refused SOCIAL HISTORY Tobacco Use: Social History Observation Description Date Details (start date - stop date) Never Smoker NA - NA Sex Assigned At : Social History Observation Description Sex Assigned At Unknown Tobacco Use/Smoking Question Answer Notes Patient is a nonsmoker Alcohol Screen Question Answer Notes Did you have a drink containing alcohol in the p ast year? No Points 0 Interpretation Negative PROBLEMS Problem Type ICD Code Onset Dates Problem Status W/U Status Risk SNOMED Code Notes Problem History of adenomatous polyp of colon (Z86.010) Active confirmed 846263452 Problem Encounter for screening for malignant neoplasm of colon (Z12.11) Active confirmed 060692073 Problem Preprocedural examination (Z01.818) Active confirmed [id number] Encounters Encounter Location Date Provider Diagnosis [facility] [address] [place] [address] 11/18/2024 Ronnie Sharif PLAN OF TREATMENT Pending Test Test Name Order Date GI BIOPSY 10/20/2019 Future Test Test Name Order Date COLONOSCOPY 09/24/2019 Next Appt Details Provider Name:Ronnie Sharif , 12/10/2024 03:00:00 PM, [address], [address], [place], [address], Insurance Providers Payer Name Payer Address Payer Phone Subscriber Number Group Number Insured Name Patient Relationship to Insured Coverage Start Date Coverage End Date MEDICARE OF [place] [address] [place] [address] [id number] DINORA BRISENO Self - patient is the insured MEDICAL (GENERAL) HISTORY Medical History History ICD Code Denies [place],DM,CVA,Lung disease,renal dise ase Screening colonoscopy in 10/2008 with a s mall tubular adenoma removed Thrombocytopenia-followed by Dr. Pedraza-platelet count 105K in 07/2019--normal LFT's Surgical History Surgery Date(Month/Year) Appendectomy Tubal ligation
== END 2024-12-03 11:14 | disposition home or self-care (01) ==
LOC: HO.HWS 10:43
PROVIDERS: PCP Internal Medicine; Visit Provider Obstetrics & Gynecology
DX: Z01.419 Encounter for gynecological examination (general) (routine) without abnormal findings (principal)
CPT/HCPCS: 99397; 99459

== ENCOUNTER 2024-12-03 10:43 | Outpatient (REF) | payer MEDICARE, SELFPAY ==
--- OUTSIDE RECORDS SUMMARY | 2024-12-03 13:05 | XMS_ITS | Encounter Summary ---
Author Organization [facility] [facility] Address [address] [facility] 7t [place] [address] Care Team Providers Care Hand Driller Name Role Phone Unavailable Primary Care Provider Unavailabl e Encounter Details Date Type Department Care Team (Latest Contact Info) Description 03/18/2019 Abstract [facility] CONVERSIONS Dental, Provider, DDS Social History Tobacco [...] Description 12/10/2024 10:30 AM EST Office Visit [facility] ADULT DENTAL [address] [place] [address] Gregorio Law DDS [address] [place] [address] 02/16/2025 3:00 PM EDT Office Visit [facility] ADULT DENTAL [address] [place] [address] Kody Copelandaris [address] [place] [address] documented as of this encounter Visit Diagnoses Not on filedocumented in this encounter
--- OUTSIDE RECORDS SUMMARY | 2024-12-03 13:05 | XMS_ITS | Encounter Summary ---
Author Organization [facility] Address [address] [facility] 7t [place] [address] Care Team Providers Care Brick Loader Name Role Phone Unavailable Primary Care Provider Unavailabl e Encounter Details Date Type Department Care Team (Late st Contact Info) Description 11/16/2022 Abstract [facility] ADULT DENTAL [address] [place] [address] Gregorio LawDEANNA [address] [place] [address] Social History Tobacco Use Types Packs/Day Years [...] Description 12/10/2024 10:30 AM EST Office Visit [facility] ADULT DENTAL [address] [place] [address] Gregorio Law DEANNA [address] [place] [address] 02/16/2025 3:00 PM EDT Office Visit [facility] ADULT DENTAL [address] [place] [address] Rosalie Copeland [address] [place] [address] documented as of this encounter Visit Diagnoses Not on filedocumented in this encounter
--- OUTSIDE RECORDS SUMMARY | 2024-12-03 13:05 | XMS_ITS | Encounter Summary ---
Author Organization [employer] Address [address] [facility] 7t [place] [address] Care Team Providers Care Instant Potato Processor Name Role Phone Unavailable Primary Care Provider Unavailabl e Reason for Visit * Reason Onset Date Comments Appointment 05/16/2023 Encounter Details Date Type Department Care Team (Late st Contact Info) Description 05/16/[address] [facility] ADULT DENTAL [address] [place], [place] [phone] Dinorah, Rosalie [address] [place], [place] [phone] Appointment Social History Tobacco Use Types Packs/Day [...] 12/10/2024 10:30 AM EST Office Visit [facility] ADULT DENTAL [address] [place] [address] Gregorio Law DDS [address] [place] [address] 02/16/2025 3:00 PM EDT Office Visit [facility] ADULT DENTAL [address] [place] [address] Rosalie Copeland [address] [place] [address] documented as of this encounter Visit Diagnoses Not on filedocumented in this encounter
--- OUTSIDE RECORDS SUMMARY | 2024-12-03 13:05 | XMS_ITS | Clinical Summary ---
Author Organization [employer] Address [address] [facility] 7t [place] [address] Care Team Providers Care Public Relations Director Name Role Phone Unavailable Primary Care Provider [...] Description 11/28/2024 10:00 AM EST Office Visit [facility] ADULT DENTAL [address] [place] [address] Gregorio Law DDS Partial edentulism, unspecified edentulism class (Primary Dx) 11/19/2024 11:00 AM EST Office Visit [facility] ADULT DENTAL [address] [place] [address] Gregorio Law DDS Partial edentulism, unspecified edentulism class (Primary Dx) 09/12/[address] [facility] ADULT DENTAL [address] [place] [address] Gregorio Law DDS 09/10/[address] [facility] ADULT DENTAL [address] [place] [address] Rosalie Copeland insurance from Last 3 Months [...] Description 12/10/2024 10:30 AM EST Office Visit [facility] ADULT DENTAL [address] [place] [address] Gregorio Law DDS [address] [place] [address] 02/16/2025 3:00 PM EDT Office Visit [facility] ADULT DENTAL [address] [place] [address] Rosalie Copeland [address] [place] [address] Health Maintenance Due Date Last Done Comments [...]
--- OUTSIDE RECORDS SUMMARY | 2024-12-03 13:05 | XMS_ITS | Encounter Summary ---
Author Organization [employer] [facility] Address [address] [facility] 7t [place] [address] Care Team Providers Care Stripper Preliminary Name Role Phone Unavailable Primary Care Provider Unavailabl e Encounter Details Date Type Department Care Team (Late st Contact Info) Description 09/21/2022 Abstract [facility] ADULT DENTAL [address] [place] [address] Dental, Provider, DDS Social History Tobacco Use [...] Description 12/10/2024 10:30 AM EST Office Visit [facility] ADULT DENTAL [address] [place] [address] Gregorio Law DDS [address] [place] [address] 02/16/2025 3:00 PM EDT Office Visit [facility] ADULT DENTAL [address] [place] [address] Kody Copelandaris [address] [place] [address] documented as of this encounter Procedures Procedure [...]
--- OUTSIDE RECORDS SUMMARY | 2024-12-03 13:05 | XMS_ITS | Encounter Summary ---
Author Organization [employer] [facility] Address [address] [facility] 7 [place] [address] Care Team Providers Care Polysomnography Technologist Name Role Phone Unavailable Primary Care Provider Unavailabl e Reason for Visit * Reason Comments Dentures Encounter Details Date Type Department Care Team (Late st Contact Info) Description 11/19/2024 11:00 AM EST Office Visit [facility] ADULT DENTAL [address] [place], [place] [phone] Gregorio Law DDS [address] [place], [place] [phone] Partial edentulism, unspecified edentulism class (Primary Dx) [...] upper partial only), Timeout Time: 1055 Location: [facility] Tooth: Maxilla and Mandible Procedure: Dentures Impressions Verified the above with patient, catalog library assistant, and provider. Confirmed via patient's chart, intraorally and by radiographs. Collet Gluer: not applicable Chief Complaint Patient presents with [...] lab to fabricate custom trays. Lab used: [facility]. Lab Due Date: 11-26-24 Patient discharged alert, oriented, and in stable condition. NV: Bite reg Scoreboard Operator: Kim Howard Dentist: Gregorio Law DDS documented in this encounter Plan of Treatment Upcoming Encounters Date Type Department Care Team (Late st Contact Info) Description 12/10/2024 10:30 AM EST Office Visit [facility] ADULT DENTAL [address] [place] [address] Gregorio Law DDS [address] [place] [address] 02/16/2025 3:00 PM EDT Office Visit [facility] ADULT DENTAL [address] [place], [place] [phone] Rosalie Copeland [address] [place] [address] Scheduled Orders Name Type Priority Associated Diagnoses [...]
--- OUTSIDE RECORDS SUMMARY | 2024-12-03 13:06 | XMS_ITS | Encounter Summary ---
Author Organization [employer] [facility] Address [address] [facility] 7 [place] [address] Care Team Providers Care Stem Crusher Name Role Phone Unavailable Primary Care Provider Unavailabl e Reason for Visit * Reason Comments Dentures Encounter Details Date Type Department Care Team (Late st Contact Info) Description 11/28/2024 10:00 AM EST Office Visit [facility] ADULT DENTAL [address] [place], [place] [phone] Gregorio Law DDS [address] [place], [place] [phone] Partial edentulism, unspecified edentulism class (Primary Dx) [...] female. Time Out: No data recorded Location: [facility] Tooth: Maxilla Procedure: Dentures Verified the above with patient, senior underwriting assistant, and provider. Confirmed via patient's chart, intraorally and by radiographs. Fixture Designer: not applicable Chief Complaint Patient presents with [...] -Interpupillary line -Occlusal Relationship -Smile Line -Canine [place] Bite Registration taken with: Wax Tooth Selection: [employer] Mould: Shade: A 2 Size: Sent to Lab for tooth set up in wax Lab used: [facility] Lab Due Date: 12-10-24 Patient discharged alert, oriented, and in stable condition. NV: Try in Die Repair: Kim Howard Dentist: Gregorio Law DDS documented in this encounter Plan of Treatment Upcoming Encounters Date Type Department Care Team (Late st Contact Info) Description 12/10/2024 10:30 AM EST Office Visit [facility] ADULT DENTAL [address] [place] [address] Gregorio Law DDS [address] [place] [address] 02/16/2025 3:00 PM EDT Office Visit [facility] ADULT DENTAL [address] [place] [address] Rosalie Copeland [address] [place] [address] documented as of this encounter Procedures Procedure Name Priority Date/Time Associated Diagnosis Comments BITE REGISTRATION Routine 11/28/2024 10:00 AM EST documented in this encounter Visit Diagnoses Diagnosis Partial edentulism, unspecified edentulism class- Primary documented in this encounter
--- OUTSIDE RECORDS SUMMARY | 2024-12-03 13:07 | XMS_ITS | Clinical Summary ---
Author Organization [employer] [facility] ity Address [address] [place] [address] Care Team Providers Care Seasonal Sales Associate Name Role Phone Unavailable Primary Care Provider [...] DTaP,Tdap,and Td Vaccines (1 - Tdap) 1974 Pneumococcal Vaccine: 50+ Ye ars (1 of 1 - PCV) 2005 Zoster Vaccines (1 of 2) 2005 COVID-19 Vaccine ( - 2023-2 5 season) [...] patient's age to complete this topic Meningococcal B Vacine Aged Out No lo nger eligible based on patient's age to complete this topic RSV Immunization Patients Un katina 20 months Aged Out No longer eligible b ased on patient's age to complete this topic Varicella Vaccines Aged Out No longer eligible based on patient's age to complete this topic
--- OUTSIDE RECORDS SUMMARY | 2024-12-03 13:07 | XMS_ITS | Encounter Summary ---
Author Organization [employer] [facility] Address [address] [facility] 7t [place] [address] Care Team Providers Care Bridge Worker Name Role Phone Unavailable Primary Care Provider Unavailabl e Encounter Details Date Type Department Care Team (Latest Contact Info) Description 02/01/2021 Abstract [facility] CONVERSIONS Dental, Provider, DDS Social History [...] Description 12/10/2024 10:30 AM EST Office Visit [facility] ADULT DENTAL [address] [place] [address] Gregorio Law DDS [address] [place] [address] 02/16/2025 3:00 PM EDT Office Visit [facility] ADULT DENTAL [address] [place] [address] Kody Copelandaris [address] [place] [address] documented as of this encounter Visit Diagnoses Not on filedocumented in this encounter
[2024-12-10 14:51] LABS: HPV Genotype 16 Positive (Negative); HPV Genotype 18 Negative (Negative); HPV High Risk Negative (Negative)
== END 2024-12-03 10:44 | disposition home or self-care (01) ==
LOC: HO.LNP 10:43
PROVIDERS: PCP Internal Medicine; Visit Provider Obstetrics & Gynecology
DX: Z01.419 Encounter for gynecological examination (general) (routine) without abnormal findings (principal)
CPT/HCPCS: 87626; 88175; 99397; 99459

== ENCOUNTER 2024-12-09 10:22 | Outpatient (AMB) | payer MEDICARE, SELFPAY ==
--- NOTE | 2024-12-09 10:25 | A.OFFPC_ITS ---
Vital Signs 12/09/24 10:26 Height 5 ft 7 in Weight 194 lb 8 oz BMI 30.5 BP 124/72 Blood Pressure Location Rt brachial Position Sitting Respiration 16 Pulse 72 Pulse Source Pulse Oximeter Temp 97.9 F Temp Source Oral Pulse Oximetry (%) 98 Oxygen Delivery Method Room Air Intake Visit Reasons: Annual PE Allergies No Known Allergies Allergy (Verified 12/09/24 10:26) Medication List - Last Reconciled 12/09/24 by Yuliya Hardy MD ascorbic acid (vitamin C) (Vitamin C) 200 mg PO DAILY multivitamin 1 tab PO DAILY Tobacco use date assessed: 12/09/24 Fall risk assessment: No Falls in past year Last assessed Fall Risk: 12/09/24 Dental Screening Dental Screen Date: 12/09/24 Did you have a dental visit in the last 12 months?: Yes Did you have a dental problem in the last 6 months where you did not have access to dental care?: No Was dental information given to patient?: Patient has dentist HPI Annual PE HPI Details Physical exam appointment Patient has chronic vertigo off and on, she is requesting a refill on meclizine Colonoscopy was September of 2020 Pap smear OBGYN Mammogram up-to-date Lab order placed to be done fasting Breast exam today no lumps were felt Physical exam 1 year [facility] Medical History ASCUS with positive high risk HPV cervical Surgical History History of appendectomy Hx of tubal ligation Family History Sister Liver cancer Brother Lung cancer Social History Household Members: Spouse Housing: House Alcohol intake: never Patient Tobacco Use Status: Never used Tobacco e-Cigarette/Vaping Use: Never Used Current occupational status: retired 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 1. Little interest or pleasure in doing things: not at all 2. Feeling down, depressed, or hopeless: not at all 3. Trouble falling or staying asleep, or sleeping too much: not at all 4. Feeling tired or having little energy: not at all 5. Poor appetite or overeating: not at all 6. Feeling bad about yourself - or that you are a failure or have let yourself or your family down: not at all 7. Trouble concentrating on things, such as reading the newspaper or watching television: not at all 8. Moving or speaking so slowly that other people could have noticed. Or the opposite - being so fidgety or restless that you have been moving around a lot more than usual: not at all 9. Thoughts that you would be better off or of hurting yourself in some way: not at all Total score: 0 Depression Screening Interpretation: Negative Depression Screening Done: Yes 00912 - PHQ-9 Billing: Yes Source: Developed by Drs. Ronnie Garcia, Loreto Richardson, Kunal Vasquez and colleagues, with an educational ncihole from [employer]. Thrive Questionnaire Date Thrive assessed: 12/09/24 I am a: Patient What is your living situation today?: I have a steady place to live Within the past 12 months, did the food you bought not last and you didn't have the money to get more?: Never true Within the past 12 months, did you worry whether your food would run out before you got money to buy more?: Never true Do you have trouble paying for medicines?: No Do you have trouble getting transportation to medical appointments?: No Do you have trouble paying your heating and electricity bill?: No Do you have trouble taking care of your child, family member or friend?: No Do you have trouble with day-to-day activities such as bathing, preparing meals, shopping, managing finances, etc.?: No Are you currently unemployed and looking for a job?: No Are you interested in more education?: No Please select the resources that you would like help with: None Currently or been in a relationship where the following occur: No concerns reported THRIVE Score: 0 AUDIT C Alcohol Use Questionnaire (AUDIT-C) 1. How often do you have a drink containing alcohol?: Never 3. How often do you have six or more drinks on one occasion?: Never Total Score: 0 Score Reviewed/Action Taken: Yes CHUYITA-7 AMB Questionnaire CHUYITA-7 Date CHUYITA - 7 assessed: 12/09/24 Feeling nervous, anxious, or on edge: 0 = Not at all Not being able to stop or control worryin = Not at all Worrying too much about different things: 0 = Not at all Trouble relaxin = Not at all Being so restless that it is hard to sit still: 0 = Not at all Becoming easily annoyed or irritable: 0 = Not at all Feeling afraid as if something awful might happen: 0 = Not at all Total CHUYITA-7 score (0-4 normal; 5-9 mild; 10-14 moderate; 15-21 severe): 0 Source: Developed by Drs. Ronnie Garcia, Loreto Richardson, Kunal Vasquez and colleagues, with an educational nichole from [employer]. CHUYITA-7 Assessment Billing CHUYITA-7 Assessment Tool: CHUYITA-7 Assessment 93955 Review of Systems Const Denies chills, Denies fever(s) and Denies headache(s) Eyes Denies blurry vision ENT Denies headache(s), Denies nasal discharge, Denies nasal obstruction, Denies odynophagia and Denies sinus pain Card Denies chest pain at rest and Denies chest pain with activity Resp Denies cough and Denies hemoptysis GI Denies diarrhea, Denies odynophagia, Denies vomiting and Denies hematemesis Reports as per HPI Musc Denies abnormal gait Skin/Breast Reports as per HPI Neuro Denies Neuro-related abnormal movements, Denies Abnormal speech present, Denies abnormal gait, Denies headache(s) and Denies Sensory deficit (Neuro) Psych Denies mood swings and Denies paranoia Endo Reports as per HPI Elvin/Lymph Reports as per HPI Aller/Immun Reports as per HPI Physical exam (Primary Care) Vital Signs: Last Vital Signs Temp 97.9 F 12/09/24 10:26 Pulse 72 12/09/24 10:26 Resp 16 12/09/24 10:26 BP 124/72 12/09/24 10:26 Pulse Ox 98 12/09/24 10:26 Oxygen Delivery Method Room Air 12/09/24 10:26 BMI result Body Mass Index 30.5 Tobacco/Smoking Status: Tobacco use Status Tobacco use date assessed 12/09/24 12/09/24 10:29 Patient Tobacco Use Status Never used Tobacco 12/09/24 10:29 e-Cigarette/Vaping Use Never Used 12/09/24 10:29 PHQ-9: PHQ-9 Score PHQ-9: Total score 0 12/09/24 10:37 Depression Screening Interpretation: Negative Thrive Assessment: Date of Thrive Assessment Date Thrive assessed 12/09/24 12/09/24 10:29 Currently or been in a relationship where the following occur: No concerns reported Const General: cooperative, comfortable and no acute distress Orientation/consciousness: patient oriented x3 HENMT Head: Yes normocephalic and Yes atraumatic Eyes General: appearance normal, both eyes and all related structures Pupils: Equal, round and reactive pupils present EOM: EOMs intact bilaterally Neck Neck: Yes supple and No lymphadenopathy Thyroid: Thyroid normal Lymphatic: no lymphadenopathy noted Chest Breast/axilla palpation: normal palpation of the breasts Resp Effort & Inspection: normal respiratory effort and able to speak in complete sentences Auscultation: clear to auscultation bilaterally Cardio Heart sounds: S1 normal heart sound present and S2 normal heart sound present GI Palpation (GI): Soft to palpation and nontender Auscultation: normal bowel sounds General: Yes no CVA tenderness Back/Spine/Pelvis Back: no CVA tenderness Skin General skin exam: elasticity normal and turgor normal Neuro General: patient oriented x3 and gait normal Cranial nerves: Yes Equal, round and reactive pupils present Speech: No Abnormal speech present Sensory Exam: No Sensory deficit (Neuro) Coordination: tandem gait normal and Romberg test negative Extrem General: Yes normal exam except as noted and No edema Coding Level of Care Code Est Pt Level 3 (89957) Est Pt Prev Care >65y(85889) Diagnoses Encounter for general adult medical examination with abnormal findings Z00.01 Neutropenia, unspecified type D70.9 Neutropenia type: unspecified Thrombocytopenia D69.6 Class 1 obesity due to excess calories without serious comorbidity with body mass index (BMI) of 30.0 to 30.9 in adult E66.811; E66.09; Z68.30 Obesity classification: adult class 1 (BMI 30 - 34.9) Serious obesity comorbidity presence: without serious comorbidity Body mass index: BMI 30.0-30.9 Additional Codes CHUYITA-7 Assessment Billing - CHUYITA-7 Assessment Tool: CHUYITA-7 Assessment 05830 ([id number]) PHQ-9 - 73903 - PHQ-9 Billing: Yes ([id number]) Assessment & Plan Assessment & Plan (1) Encounter for general adult medical examination with abnormal findings: Code(s): Z00.01 - Encounter for general adult medical examination with abnormal findings Category: Medical (2) Neutropenia: Code(s): D70.9 - Neutropenia, unspecified Category: Medical Qualifiers: Neutropenia type: unspecified Qualified Code(s): D70.9 - Neutropenia, unspecified (3) Thrombocytopenia: Code(s): D69.6 - Thrombocytopenia, unspecified Category: Medical (4) Obesity due to excess calories: Code(s): E66.09 - Other obesity due to excess calories Category: Medical Qualifiers: Obesity classification: adult class 1 (BMI 30 - 34.9) Serious obesity comorbidity presence: without serious comorbidity Body mass index: BMI 30.0- 30.9 Qualified Code(s): E66.811 - Obesity, class 1; E66.09 - Other obesity due to excess calories; Z68.30 - Body mass index [BMI] 30.0-30.9, adult Plan Physical exam appointment Patient is 69-year-old female with a history of neutropenia and thrombocytopenia stable chronic Patient has chronic vertigo off and on, she is requesting a refill on meclizine Patient use it only rarely, 30 tablets sent with 1 refill Colonoscopy was September of 2020 Pap smear OBGYN Mammogram up-to-date Lab order placed to be done fasting Breast exam today no lumps were felt Physical exam 1 year Orders: Orders Complete Blood Count Auto Diff Today D69.6 - Thrombocytopenia, unspecified, D70.9 - Neutropenia, unspecified, E66.09 - Other obesity due to excess calories, Z00.01 - Encounter for general adult medical examination with abnormal findings Vitamin D 25-OH (D2 and D3) Today D69.6 - Thrombocytopenia, unspecified, D70.9 - Neutropenia, unspecified, E66.09 - Other obesity due to excess calories, Z00.01 - Encounter for general adult medical examination with abnormal findings Vitamin B12 Today D69.6 - Thrombocytopenia, unspecified, D70.9 - Neutropenia, unspecified, E66.09 - Other obesity due to excess calories, Z00.01 - Encounter for general adult medical examination with abnormal findings TSH reflex Free T4 Today D69.6 - Thrombocytopenia, unspecified, D70.9 - Gracia tropenia, unspecified, E66.09 - Other obesity due to excess calories, Z00.01 - Encounter for general adult medical examination with abnormal findings UA CC w/rflx Micro + Cult Today D69.6 - Thrombocytopenia, unspecified, D70.9 - Neutropenia, unspecified, E66.09 - Other obesity due to excess calories, Z00.01 - Encounter for general adult medical examination with abnormal findings Comprehensive [place]. Panel Fast Today D69.6 - Thrombocytopenia, unspecified, D70.9 - Neutropenia, unspecified, E66.09 - Other obesity due to excess calories, Z00.01 - Encounter for general adult medical examination with abnormal findings Lipid Panel Today D69.6 - Thrombocytopenia, unspecified, D70.9 - Neutropenia, unspecified, E66.09 - Other obesity due to excess calories, Z00.01 - Encounter for general adult medical examination with abnormal findings Medications: Changed From meclizine 25 mg PO BID-TID 90 days PRN 90 tabs 1RF dizziness R42 - Dizziness and giddiness To meclizine 25 mg PO .qd 30 days PRN 30 tabs 1RF dizziness R42 - Dizziness and giddiness
[2024-12-09 10:26] VITALS: BP 124/72; PULSE 72; RESP 16; TEMP 36.6; O2SAT 98; BMI 30.5
--- OUTSIDE RECORDS SUMMARY | 2024-12-09 11:21 | XMS_ITS | Encounter Summary ---
Author Organization [employer] [facility] Address [address] [facility] 7t [place] [address] Care Team Providers Care Chargemaster Analyst Name Role Phone Unavailable Primary Care Provider Unavailabl e Encounter Details Date Type Department Care Team (Late st Contact Info) Description 11/16/2022 Abstract [facility] ADULT DENTAL [address] [place] [address] Gregorio LawDEANNA [address] [place] [address] Social History Tobacco Use Types Packs/Day Years [...] Description 12/10/2024 10:30 AM EST Office Visit [facility] ADULT DENTAL [address] [place] [address] Gregorio Law DEANNA [address] [place] [address] 02/16/2025 3:00 PM EDT Office Visit [facility] ADULT DENTAL [address] [place] [address] Rosalie Copeland [address] [place] [address] documented as of this encounter Visit Diagnoses Not on filedocumented in this encounter
--- OUTSIDE RECORDS SUMMARY | 2024-12-09 11:22 | XMS_ITS | Encounter Summary ---
Author Organization [employer] [facility] Address [address] [facility] 7 [place] [address] Care Team Providers Care Bridal Gown Fitter Name Role Phone Unavailable Primary Care Provider Unavailabl e Reason for Visit * Reason Comments Dentures Encounter Details Date Type Department Care Team (Late st Contact Info) Description 11/19/2024 11:00 AM EST Office Visit [facility] ADULT DENTAL [address] [place], [place] [phone] Gregorio Law DDS [address], [place] [phone] Partial edentulism, unspecified edentulism class (Primary Dx) [...] upper partial only), Timeout Time: 1055 Location: [facility] Tooth: Maxilla and Mandible Procedure: Dentures Impressions Verified the above with patient, porcelain buildup assistant, and provider. Confirmed via patient's chart, intraorally and by radiographs. Asbestos Surveyor: not applicable Chief Complaint Patient presents with [...] lab to fabricate custom trays. Lab used: [facility]. Lab Due Date: 11-26-24 Patient discharged alert, oriented, and in stable condition. NV: Bite reg Civil Celebrant: Kim Howard Dentist: Gregorio Law DDS documented in this encounter Plan of Treatment Upcoming Encounters Date Type Department Care Team (Late st Contact Info) Description 12/10/2024 10:30 AM EST Office Visit [facility] ADULT DENTAL [address] [place] [address] Gregorio Law DDS [address] [place] [address] 02/16/2025 3:00 PM EDT Office Visit [facility] ADULT DENTAL [address], [place] [phone] Rosalie Copeland [address] [place] [address] Scheduled Orders Name Type Priority Associated Diagnoses [...]
--- OUTSIDE RECORDS SUMMARY | 2024-12-09 11:22 | XMS_ITS | Encounter Summary ---
Author Organization [employer] [facility] Address [address] [facility] 7 [place] [address] Care Team Providers Care Ict Managers Name Role Phone Unavailable Primary Care Provider Unavailabl e Reason for Visit * Reason Comments Dentures Encounter Details Date Type Department Care Team (Late st Contact Info) Description 11/28/2024 10:00 AM EST Office Visit [facility] ADULT DENTAL [address] [place], [place] [phone] Gregorio Law DDS [address] [place], [place] [phone] Partial edentulism, unspecified edentulism class (Primary Dx) [...] female. Time Out: No data recorded Location: [facility] Tooth: Maxilla Procedure: Dentures Verified the above with patient, orthodontic assistant, and provider. Confirmed via patient's chart, intraorally and by radiographs. Corporate Attorney: not applicable Chief Complaint Patient presents with [...] -Interpupillary line -Occlusal Relationship -Smile Line -Canine [place] Bite Registration taken with: Wax Tooth Selection: Mytopia Mould: Shade: A 2 Size: Sent to Lab for tooth set up in wax Lab used: [facility] Lab Due Date: 12-10-24 Patient discharged alert, oriented, and in stable condition. NV: Try in University Manager: Kim Howard Dentist: Gregorio Law DDS documented in this encounter Plan of Treatment Upcoming Encounters Date Type Department Care Team (Late st Contact Info) Description 12/10/2024 10:30 AM EST Office Visit [facility] ADULT DENTAL [address] [place] [address] Gregorio Law DDS [address] [place] [address] 02/16/2025 3:00 PM EDT Office Visit [facility] ADULT DENTAL [address] [place] [address] Rosalie Copeland [address] [place] [address] documented as of this encounter Procedures Procedure Name Priority Date/Time Associated Diagnosis Comments BITE REGISTRATION Routine 11/28/2024 10:00 AM EST documented in this encounter Visit Diagnoses Diagnosis Partial edentulism, unspecified edentulism class- Primary documented in this encounter
--- OUTSIDE RECORDS SUMMARY | 2024-12-09 11:22 | XMS_ITS ---
Author Organization [facility] Address [address] [place] [address] Care Team Providers Care Solution Sales Senior Executive Name Role Phone Antony LAGOS, [facility] Primary Care Provider Ronnie Menard [phone] REASON FOR VISIT recall colonoscopy Encounters Encounter Location Date Provider Diagnosis [facility] [address] [place] [address] 11/18/2024 Ronnie Sharif PLAN OF TREATMENT Next Appt Details Provider Name:Ronnie Sharif , 12/10/2024 03:00:00 PM, [address], [address], [place], [address],
--- OUTSIDE RECORDS SUMMARY | 2024-12-09 11:22 | XMS_ITS | Encounter Summary ---
Author Organization [employer] Address [address] [facility] 7t [place] [address] Care Team Providers Care Switchman Supervisor Name Role Phone Unavailable Primary Care Provider Unavailabl e Reason for Visit * Reason Onset Date Comments Appointment 05/16/2023 Encounter Details Date Type Department Care Team (Late st Contact Info) Description 05/16/2023 Telephone [facility] ADULT DENTAL [address] [place], [place] [phone] Dinorah, Rosalie [address] [place], [place] [phone] Appointment Social History Tobacco Use Types Packs/Day [...] 10:30 AM EST Office Visit [facility] ADULT DENTAL [address] [place] [address] Gregorio Law DDS [address] [place] [address] 02/16/2025 3:00 PM EDT Office Visit [facility] ADULT DENTAL [address] [place] [address] Rosalie Copeland [address] [place] [address] documented as of this encounter Visit Diagnoses Not on filedocumented in this encounter
--- OUTSIDE RECORDS SUMMARY | 2024-12-09 11:22 | XMS_ITS | Encounter Summary ---
Author Organization [employer] [facility] Address [address] [facility] 7 [place] [address] Care Team Providers Care Twister Hand Name Role Phone Unavailable Primary Care Provider Unavailabl e Encounter Details Date Type Department Care Team (Latest Contact Info) Description 02/01/2021 Abstract [facility] CONVERSIONS Dental, Provider, DDS Social History Tobacco [...] 10:30 AM EST Office Visit [facility] ADULT DENTAL [address] [place] [address] Gregorio Law DDS [address] [place] [address] 02/16/2025 3:00 PM EDT Office Visit [facility] ADULT DENTAL [address] [place] [address] Kody Copelandaris [address] [place] [address] documented as of this encounter Visit Diagnoses Not on filedocumented in this encounter
--- OUTSIDE RECORDS SUMMARY | 2024-12-09 11:22 | XMS_ITS | Clinical Summary ---
Author Organization [employer] Address [address] [facility] 7t [place] [address] Care Team Providers Care Election Watcher Name Role Phone Unavailable Primary Care Provider [...] Description 11/28/2024 10:00 AM EST Office Visit [facility] ADULT DENTAL [address] [place] [address] Gregorio Law DDS Partial edentulism, unspecified edentulism class (Primary Dx) 11/19/2024 11:00 AM EST Office Visit [facility] ADULT DENTAL [address] [place] [address] Gregorio Law DDS Partial edentulism, unspecified edentulism class (Primary Dx) 09/12/2024 Telephone [facility] ADULT DENTAL [address] [place] [address] Gregorio Law DDS 09/10/2024 Telephone [facility] ADULT DENTAL [address] [place] [address] Rosalie Copeland insurance from Last 3 Months [...] Description 12/10/2024 10:30 AM EST Office Visit [facility] ADULT DENTAL [address] [place] [address] Gregorio Law DDS [address] [place] [address] 02/16/2025 3:00 PM EDT Office Visit [facility] ADULT DENTAL [address] [place] [address] Rosalie Copeland [address] [place] [address] Health Maintenance Due Date Last Done Comments [...]
--- OUTSIDE RECORDS SUMMARY | 2024-12-09 11:22 | XMS_ITS | Encounter Summary ---
Author Organization [employer] [facility] Address [address] [facility] [address]t [place] [address] Care Team Providers Care Sponge Fisherman Name Role Phone Unavailable Primary Care Provider Unavailabl e Encounter Details Date Type Department Care Team (Late st Contact Info) Description 09/21/2022 Abstract [facility] ADULT DENTAL [address] [place] [address] Dental, Provider, DDS Social History Tobacco Use [...] 10:30 AM EST Office Visit [facility] ADULT DENTAL [address] [place] [address] Gregorio Law DDS [address] [place] [address] 02/16/2025 3:00 PM EDT Office Visit [facility] ADULT DENTAL [address] [place] [address] Kody Copelandaris [address] [place] [address] documented as of this encounter Procedures Procedure [...]
--- OUTSIDE RECORDS SUMMARY | 2024-12-09 11:22 | XMS_ITS | Encounter Summary ---
Author Organization [employer] [facility] Address [address] [facility] 7t [place] [address] Care Team Providers Care Size Mixer Name Role Phone Unavailable Primary Care Provider Unavailabl e Encounter Details Date Type Department Care Team (Latest Contact Info) Description 03/18/2019 Abstract [facility] CONVERSIONS Dental, Provider, DDS Social History Tobacco [...] Description 12/10/2024 10:30 AM EST Office Visit [facility] ADULT DENTAL [address] [place] [address] Gregorio Law DDS [address] [place] [address] 02/16/2025 3:00 PM EDT Office Visit [facility] ADULT DENTAL [address] [place] [address] Kody Copelandaris [address] [place] [address] documented as of this encounter Visit Diagnoses Not on filedocumented in this encounter
--- OUTSIDE RECORDS SUMMARY | 2024-12-09 11:22 | XMS_ITS | Clinical Summary ---
Author Organization [facility] [facility] Address [address] [place] [address] Care Team Providers Care Respiratory Therapist Name Role Phone Unavailable Primary Care Provider [...]
== END 2024-12-09 10:49 | disposition home or self-care (01) ==
PROVIDERS: PCP Internal Medicine; Visit Provider Internal Medicine
DX: Z00.01 Encounter for general adult medical examination with abnormal findings (principal); D70.9 Neutropenia, unspecified; D69.6 Thrombocytopenia, unspecified; E66.811 Obesity, class 1; Z68.30 Body mass index [BMI] 30.0-30.9, adult

== ENCOUNTER → 2024-12-09 10:22 | Outpatient (BNVA) | payer OTHER, SELFPAY | PROVIDERS: PCP Internal Medicine; Visit Provider Internal Medicine | DX: Z00.01 Encounter for general adult medical examination with abnormal findings (principal); D70.9 Neutropenia, unspecified; D69.6 Thrombocytopenia, unspecified; E66.811 Obesity, class 1; E66.09 Other obesity due to excess calories; Z68.30 Body mass index [BMI] 30.0-30.9, adult; Z71.3 Dietary counseling and surveillance | CPT/HCPCS: 96127; 99397 ==

== ENCOUNTER 2024-12-10 09:33 | Outpatient (REF) | payer MEDICARE, SELFPAY ==
[2024-12-10 09:50] LABS: MANUAL DIFF FLAG NO
--- OUTSIDE RECORDS SUMMARY | 2024-12-10 09:52 | XMS_ITS | Clinical Summary ---
Author Organization [employer] Address [address] [facility] 7t [place] [address] Care Team Providers Care Account Clerk Name Role Phone Unavailable Primary Care Provider [...] Description 11/28/2024 10:00 AM EST Office Visit [facility] [address] [place] [address] Gregorio Law DDS Partial edentulism, unspecified edentulism class (Primary Dx) 11/19/2024 11:00 AM EST Office Visit [facility] [address] [place] [address] Gregorio Law DDS Partial edentulism, unspecified edentulism class (Primary Dx) 09/12/[address] [facility] [address] [place] [address] Gregorio Law DDS 09/10/[address] [facility] [address] [place] [address] Rosalie Copeland insurance from Last 3 Months [...] 12/10/2024 10:30 AM EST Office Visit [facility] [address] [place] [address] Gregorio Law DDS [address] [place] [address] 02/16/2025 3:00 PM EDT Office Visit [facility] [address] [place] [address] Rosalie Copeland [address] [place] [address] Health Maintenance Due Date Last Done Comments [...]
--- OUTSIDE RECORDS SUMMARY | 2024-12-10 09:52 | XMS_ITS | Clinical Summary ---
Author Organization [employer] [facility] ity Address [address] [place] [address] Care Team Providers Care Account Associate Name Role Phone Unavailable Primary Care [...]
--- OUTSIDE RECORDS SUMMARY | 2024-12-10 09:52 | XMS_ITS | Encounter Summary ---
Author Organization [facility] Address [address] [facility] 7t [place] [address] Care Team Providers Care House Shorer Name Role Phone Unavailable Primary Care Provider Unavailabl e Encounter Details Date Type Department Care Team (Latest Contact Info) Description 03/18/2019 Abstract [facility] CONVERSIONS Dental, Provider, DDS Social History [...] Description 12/10/2024 10:30 AM EST Office Visit [facility] ADULT DENTAL [address] [place] [address] Gregorio Law DDS [address] [place] [address] 02/16/2025 3:00 PM EDT Office Visit [facility] ADULT [facility] [address] [place] [address] Kody Copelandaris [address] [place] [address] documented as of this encounter Visit Diagnoses Not on filedocumented in this encounter
--- OUTSIDE RECORDS SUMMARY | 2024-12-10 09:52 | XMS_ITS | Encounter Summary ---
Author Organization [employer] Address [address] [facility] 7t [place] [address] Care Team Providers Care Desulphurizer Operator Name Role Phone Unavailable Primary Care Provider Unavailabl e Reason for Visit * Reason Onset Date Comments Appointment 05/16/2023 Encounter Details Date Type Department Care Team (Late st Contact Info) Description 05/16/2023 Telephone [facility]ULT [facility] [address] [place], [place] [phone] Dinorah, Rosalie [address] [place], [place] [phone] Appointment Social History Tobacco Use Types Packs/Day [...] Office Visit [facility] ADULT [facility] [address] [place] [address] Gregorio Law DDS [address] [place] [address] 02/16/2025 3:00 PM EDT Office Visit [facility] ADULT [facility] [address] [place] [address] Rosalie Copeland [address] [place] [address] documented as of this encounter Visit Diagnoses Not on filedocumented in this encounter
--- OUTSIDE RECORDS SUMMARY | 2024-12-10 09:52 | XMS_ITS | Encounter Summary ---
Author Organization [facility] Address [address] [facility] 7 [place] [address] Care Team Providers Care Scuba Dive Training Instructor Name Role Phone Unavailable Primary Care Provider Unavailabl e Reason for Visit * Reason Comments Dentures Encounter Details Date Type Department Care Team (Late st Contact Info) Description 11/28/2024 10:00 AM EST Office Visit [facility] ADULT DENTAL [address] [place], [place] [phone] Gregorio Law DDS [address] [place], [place] [phone] Partial edentulism, unspecified edentulism class (Primary Dx) [...] female. Time Out: No data recorded Location: [facility] Tooth: Maxilla Procedure: Dentures Verified the above with patient, assistant laboratory director, and provider. Confirmed via patient's chart, intraorally and by radiographs. Sports Leadership Instructor: not applicable Chief Complaint Patient presents with [...] -Interpupillary line -Occlusal Relationship -Smile Line -Canine Elrama Bite Registration taken with: Wax Tooth Selection: MAKO Surgical Mould: Shade: A 2 Size: Sent to Lab for tooth set up in wax Lab used: [facility] Lab Due Date: 12-10-24 Patient discharged alert, oriented, and in stable condition. NV: Try in Mannequin Sander And Finisher: Kim Howard Dentist: Gregorio Law DDS documented in this encounter Plan of Treatment Upcoming Encounters Date Type Department Care Team (Late st Contact Info) Description 12/10/2024 10:30 AM EST Office Visit [facility] ADULT [facility] [address] [place] [address] Gregorio Law DDS [address] [place] [address] 02/16/2025 3:00 PM EDT Office Visit [facility]ULT [facility] [address] [place] [address] Rosalie Copeland [address] [place] [address] documented as of this encounter Procedures Procedure Name Priority Date/Time Associated Diagnosis Comments BITE REGISTRATION Routine 11/28/2024 10:00 AM EST documented in this encounter Visit Diagnoses Diagnosis Partial edentulism, unspecified edentulism class- Primary documented in this encounter
--- OUTSIDE RECORDS SUMMARY | 2024-12-10 09:52 | XMS_ITS ---
Author Organization [facility] Address [address] [place] [address] Care Team Providers Care Youth Career Specialist Name Role Phone Antony LAGOS, [facility] Primary Care Provider Ronnie Menard [phone] REASON FOR VISIT Patient presents today for a recall colonoscopy Encounters Encounter Location Date Provider Diagnosis [facility] [address] [place] [address] 12/10/2024 Ronnie Sharif PLAN OF TREATMENT Next Appt Details Provider Name:Ronnie Sharif , 12/10/2024 03:00:00 PM, [address], [address], [place], [address],
--- OUTSIDE RECORDS SUMMARY | 2024-12-10 09:52 | XMS_ITS ---
Author Organization [facility] Address [address] [place] [address] Care Team Providers Care Presales Engineer Name Role Phone Antony LAGOS, [facility] Primary Care Provider Ronnie Menard [phone] REASON FOR VISIT recall colonoscopy Encounters Encounter Location Date Provider Diagnosis [facility] [address] [place] [address] 11/18/2024 Ronnie Sharif PLAN OF TREATMENT Next Appt Details Provider Name:Ronnie Sharif , 12/10/2024 03:00:00 PM, [address], [address], [place], [address],
--- OUTSIDE RECORDS SUMMARY | 2024-12-10 09:52 | XMS_ITS | Encounter Summary ---
Author Organization [facility] Address [address] [facility] 7t [place] [address] Care Team Providers Care Freelance Copywriter Name Role Phone Unavailable Primary Care Provider Unavailabl e Encounter Details Date Type Department Care Team (Latest Contact Info) Description 02/01/2021 Abstract [facility] CONVERSIONS Dental, Provider, DDS Social History [...] [facility] [address] [place] [address] Gregorio Law DDS [address] [place] [address] 02/16/2025 3:00 PM EDT Office Visit [facility] [address] [place] [address] Kody Copelandaris [address] [place] [address] documented as of this encounter Visit Diagnoses Not on filedocumented in this encounter
--- OUTSIDE RECORDS SUMMARY | 2024-12-10 09:52 | XMS_ITS | Encounter Summary ---
Author Organization [employer] [facility] Address [address] [facility] 7t [place] [address] Care Team Providers Care Field Sales Agent Name Role Phone Unavailable Primary Care Provider Unavailabl e Encounter Details Date Type Department Care Team (Late st Contact Info) Description 11/16/2022 Abstract [facility] ADULT DENTAL [address] [place] [address] Gregorio LawDEANNA [address] [place] [address] Social History Tobacco Use Types Packs/Day Years [...] Description 12/10/2024 10:30 AM EST Office Visit [facility] ADULT D[facility] [address] [place] [address] Gregorio Law DEANNA [address] [place] [address] 02/16/2025 3:00 PM EDT Office Visit [facility]ULT [facility] [address] [place] [address] Rosalie Copeland [address] [place] [address] documented as of this encounter Visit Diagnoses Not on filedocumented in this encounter
--- OUTSIDE RECORDS SUMMARY | 2024-12-10 09:52 | XMS_ITS | Patient Health Record ---
Author Organization [facility] Address [address] [place] [address] Care Team Providers Care Mixer Operator Vacuum Pan Salt Name Role Phone Antony LAGOS, [facility] Primary Care Provider Ronnie Menard [phone] REASON FOR REFERRAL No Information MEDICATIONS Medication [...] adenomatous polyp of colon (Z86.010) Active confirmed 820367137 Problem Encounter for screening for malignant neoplasm of colon (Z12.11) Active confirmed [id number] Problem Preprocedural examination (Z01.818) Active confirmed [id number] Encounters Encounter Location Date Provider Diagnosis [facility] [address] [place] [address] 11/18/2024 Ronnie Sharif [facility] [address] [place] [address] 12/10/2024 Ronnie Sharif PLAN OF TREATMENT Pending Test Test Name Order Date GI BIOPSY 10/20/2019 Future Test Test Name Order Date COLONOSCOPY 09/24/2019 Next Appt Details Provider Name:Ronnie Sharif , 12/10/2024 03:00:00 PM, [address], [address], [place], [address], Insurance Providers Payer Name Payer Address Payer Phone Subscriber Number Group Number Insured Name Patient Relationship to Insured Coverage Start Date Coverage End Date MEDICARE OF [place] [address] [facility] [address] [phone] [id number] DINORA BRISENO Self - patient is the insured MEDICAL (GENERAL) HISTORY Medical History History ICD Code Denies PR,DM,CVA,Lung disease,renal dise ase Screening colonoscopy in 10/2008 with a s mall tubular adenoma removed Thrombocytopenia-followed by Dr. Pedraza-platelet count 105K in 07/2019--normal LFT's Surgical History Surgery Date(Month/Year) Appendectomy Tubal ligation
--- OUTSIDE RECORDS SUMMARY | 2024-12-10 09:52 | XMS_ITS | Encounter Summary ---
Author Organization [facility] Address [address] [facility] 7t [place] [address] Care Team Providers Care Salvage Engineering Technician Name Role Phone Unavailable Primary Care Provider Unavailabl e Encounter Details Date Type Department Care Team (Late st Contact Info) Description 09/21/2022 Abstract [facility] ADULT [facility] [address] [place] [address] Dental, Provider, DDS Social History Tobacco Use [...] [facility] [address] [place] [address] Gregorio Law DDS [address] [place] [address] 02/16/2025 3:00 PM EDT Office Visit [facility] [address] [place] [address] Kody Copelandaris [address] [place] [address] documented as of this encounter Procedures Procedure [...]
--- OUTSIDE RECORDS SUMMARY | 2024-12-10 09:52 | XMS_ITS | Encounter Summary ---
Author Organization [employer] [facility] Address [address] [facility] 7 [place] [address] Care Team Providers Care Supervisor Industrial Arts Education Name Role Phone Unavailable Primary Care Provider Unavailabl e Reason for Visit * Reason Comments Dentures Encounter Details Date Type Department Care Team (Late st Contact Info) Description 11/19/2024 11:00 AM EST Office Visit [facility] ADULT DENTAL [address] [place], [place] [phone] Gregorio Law DDS [address] [place], [place] [phone] Partial edentulism, unspecified edentulism class (Primary Dx) [...] upper partial only), Timeout Time: 1055 Location: [facility] Tooth: Maxilla and Mandible Procedure: Dentures Impressions Verified the above with patient, marketing assistant retail division, and provider. Confirmed via patient's chart, intraorally and by radiographs. Creative Perfumer: not applicable Chief Complaint Patient presents with [...] lab to fabricate custom trays. Lab used: [facility]. Lab Due Date: 11-26-24 Patient discharged alert, oriented, and in stable condition. NV: Bite reg Cloth Checker: Kim Howard Dentist: Gregorio Law DDS documented in this encounter Plan of Treatment Upcoming Encounters Date Type Department Care Team (Late st Contact Info) Description 12/10/2024 10:30 AM EST Office Visit [facility] ADULT DENTAL [address] [place] [address] Gregorio Law DDS [address] [place] [address] 02/16/2025 3:00 PM EDT Office Visit [facility] ADULT DENTAL [address] [place], [place] [phone] Rosalie Copeland [address] [place] [address] Scheduled Orders Name Type Priority Associated Diagnoses [...]
[2024-12-10 10:25] LABS: Basophils Percent Auto 0.7 % (0-2); Eosinophils Absolute Auto 0.1 X10*3/uL (0.0-0.4); Hematocrit 39.3 % (37.0-47.0); Hemoglobin 12.9 g/dl (12.0-16.0); Imm Gran Abs Auto 0.02 X10*3/uL (0.00-0.03); Imm Gran Pct Auto 0.4 % (0.0-0.4); Lymphocytes Absolute Auto 1.2 X10*3/uL (1.2-4.9); Lymphocytes Percent Auto 27.2 % (20-40); Mean Corpuscular HGB Conc 32.8 g/dl (31.0-35.0); Mean Corpuscular Hemoglobin 30.8 pg (27.0-33.0); Mean Corpuscular Volume 93.8 fL (80.0-98.0); Mean Platelet Volume 12.1 fL (9.4-12.3); Monocytes Absolute Auto 0.3 X10*3/uL (0.1-1.2); Monocytes Percent Auto 7.4 % (2-11); Neutrophils Absolute Auto 2.8 x10*3/uL (2.0-8.3); Neutrophils Percent Auto 62.3 % (45-73); Platelet Count 125 X10*3/uL (160-400); Red Blood Count 4.19 X10*6/uL (4.20-5.50); Red Cell Distribution Width 12.4 % (11.0-16.0); White Blood Count 4.5 X10*3/uL (4.8-10.8)
[2024-12-10 11:00] LABS: Alanine Aminotransferase 17 U/L (0-31); Albumin Level 4.4 g/dL (3.5-5.0); Alkaline Phosphatase 109 U/L (39-117); Anion Gap 12 (12-20); Aspartate Amino Transferase 30 U/L (5-31); Bilirubin Total 0.4 mg/dL (0.0-1.0); Blood Urea Nitrogen 15 mg/dL (9-16); Calcium 9.3 mg/dL (8.4-10.2); Carbon Dioxide 28 mmol/L (22-29); Chloride 106 mmol/L (96-108); Cholesterol 231 mg/dL (<200); Estimated Glomerular Filt Rate > 60; Glucose Fasting 84 mg/dL (60-99); HDL Cholesterol 70 mg/dL (>40); LDL Cholesterol Calculated 140 mg/dL (<100); Potassium 4.1 mmol/L (3.3-5.1); Sodium 142 mmol/L (135-145); Total Protein 8.4 g/dL (6.5-8.0); Triglycerides 109 mg/dL (<150)
[2024-12-10 11:11] LABS: Appearance Urine Clear; Color Urine Yellow; Glucose Urine UA Negative (Negative); Leukocyte Esterase Urine Negative (Negative); Nitrite Urine Negative (Negative); PH 7.5 (5.0-9.0); Specific Gravity - Urine 1.025 (1.005-1.025); Urine Blood Negative (Negative); Urine Ketones Negative (Negative); Urine Protein Negative (Neg-Trace)
[2024-12-10 11:15] LABS: Vitamin B12 485 pg/mL (200-900)
[2024-12-10 11:17] LABS: TSH reflex Free T4 2.39 uIU/mL (0.32-4.0)
[2024-12-12 23:53] LABS: Vitamin D 25-OH, D2 <4 ng/mL; Vitamin D 25-OH, D3 19 ng/mL; Vitamin D 25-OH, Total 19 ng/mL (30-100)
== END 2024-12-10 09:34 | disposition home or self-care (01) ==
LOC: HO.LAB 09:33
PROVIDERS: PCP Internal Medicine; Visit Provider Internal Medicine
DX: Z00.01 Encounter for general adult medical examination with abnormal findings (principal); D70.9 Neutropenia, unspecified; D69.6 Thrombocytopenia, unspecified; E66.09 Other obesity due to excess calories
CPT/HCPCS: 36415; 80053; 80061; 81003; 82306; 82607; 84443; 85025

== ENCOUNTER 2025-01-22 10:58 | Outpatient (AMB) | payer MEDICARE, SELFPAY ==
--- NOTE | 2025-01-22 10:59 | A.OFFVIS_ITS ---
Vital Signs 01/22/25 11:03 Height 5 ft 7 in Weight 187 lb BMI 29.3 BP 110/70 Intake Visit Reasons: Colposcopy Gluing Machine Operator Electronic Required: No Information Interpreted: non-clinical & clinical Green Inspector: Green Inspector Present (Chanel GUERRERO) Accompanied by: Self / Same As Patient Allergies No Known Allergies Allergy (Verified 01/22/25 11:09) Post menopausal: Yes HPI Comments Details: Presenting for abnormal Pap smear showing ascus/HPV 16 positive [facility] Medical History (Updated 01/22/25 @ 11:18 by Alexey Gao MD) ASCUS with positive high risk HPV cervical Surgical History History of appendectomy Hx of tubal ligation Family History Sister Liver cancer Brother Lung cancer Social History Household Members: Spouse Housing: House Alcohol intake: never Patient Tobacco Use Status: Never used Tobacco e-Cigarette/Vaping Use: Never Used Current occupational status: retired 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 Cognitive needs: No Hearing needs: No Vision needs: Yes Female Reproductive History Menstrual Age of Menarche: 14 Review of Systems Const All systems reviewed & are unremarkable except as noted in HPI and below Physical Exam Vital Signs: Last Vital Signs BP 110/70 01/22/25 11:03 BMI result Body Mass Index 29.3 General: Yes no CVA tenderness External Female Exam: normal external appearance and normal appearance of the urethra Speculum Exam - Vagina: normal appearance of the vagina, normal palpation, no lesions and no masses Speculum Exam - Cervix: normal appearance of the cervix, normal palpation, no lesions, no masses and nontender Bimanual exam- vagina & uterus: normal bimanual exam, normal palpation, uterine size normal, normal palpation, uterine shape normal, No Cervical tenderness present and non-tender Bimanual Exam- Adnexa, other: normal adnexae Back/Spine/Pelvis Back: no CVA tenderness Office Procedures Colposcopy Colposcopy: Pre-Procedure Counseling: Before beginning the procedure, I conducted comprehensive counseling with the patient. We thoroughly discussed the procedure itself, including its details, alternatives, and all associated risks. This included but not limited to the following complications such as bleeding, infection, and injury to the vagina, bladder, and vessels, as well as the potential need for transfusion with all its associated risks. Subsequently, the patient sign the consent. Pap smear result: Ascus HPV 16 positive. Procedure: During the procedure, the following steps were performed: A speculum was inserted, and acetic acid was applied. Colposcopy was conducted, allowing visualization of the transformation zone. Acetowhite lesions were identified at the 9+ 12+ 1 o'clock position. Cervical biopsies were obtained from the 9+ 12+ 1 o'clock position, followed by an endocervical curettage (ECC). Vaginoscopy of the upper vagina revealed no evidence of aceto-white lesions. Hemostasis was achieved using Monsel solution, and the patient tolerated the procedure well. Post-Procedure Instructions: The patient was advised to promptly contact the office or the after hours answering service or go to the emergency room if experiencing a temperature exceeding 100.4?F, abdominal pain, nausea/vomiting, or bleeding. Additionally, the patient was instructed to abstain from vaginal intercourse and bathtub use. The patient confirmed understanding of these instructions. Discharge Instructions: The patient was instructed to schedule a follow-up appointment in 2 weeks for further evaluation and management. Please note that this note was generated using a voice recognition program, and errors may have occurred during gas blender. [id number] of cervix including upper vagina with biopsy and ECC Procedure code (CPT) selection complete Assessment & Plan Assessment & Plan (1) ASCUS with positive high risk HPV cervical: Comment: 10/13 ascus HPV positive, colpo biopsy ECC negative Code(s): R87.610 - Atypical squamous cells of undetermined significance on cytologic smear of cervix (ASC-US); R87.810 - Cervical high risk human papillomavirus (HPV) DNA test positive Category: Medical Plan: Discussed with the patient the result of her abnormal pap/HPV 16 positive, its significance, risk of progression, persistence, and regression. the false positive/negative rate of a Pap smear as a screening test in detecting cervical cancer and the indication for a diagnostic test -colposcopy, biopsy, endocervical curettage. The patient verbalized understanding and agreed with the plan, all questions answered. Colpo/biopsy/ECC done, see procedure note Orders: Orders AMB Colposcopy Today R87.610 - Atypical squamous cells of undetermined significance on cytologic smear of cervix (ASC-US), R87.810 - Cervical high risk human papillomavirus (HPV) DNA test positive Coding Level of Care Code Procedure Only Diagnoses ASCUS with positive high risk HPV cervical R87.610; R87.810 CPT Codes Colposcopy - CPT: 90563-Dfvrgbski of cervix including upper vagina with biopsy and ECC ([id number])
[2025-01-22 11:03] VITALS: BP 110/70; BMI 29.3
--- OUTSIDE RECORDS SUMMARY | 2025-01-22 12:18 | XMS_ITS | Encounter Summary ---
Author Organization [facility] Address [address] [facility] 7t [place] [address] Care Team Providers Care Orthodontist Assistant Name Role Phone Unavailable Primary Care Provider Unavailabl e Encounter Details Date Type Department Care Team (Late st Contact Info) Description 09/21/2022 Abstract [facility] ADULT DENTAL [address] [place] [address] Dental, Provider, DDS Social History Tobacco Use [...] Care Team (Late st Contact Info) Description 02/16/2025 3:00 PM EDT Office Visit [facility] ADULT DENTAL [address] [place] [address] Kody Copelandaris [address] [place] [address] documented as of this encounter Procedures Procedure [...]
--- OUTSIDE RECORDS SUMMARY | 2025-01-22 12:18 | XMS_ITS ---
Author Organization [facility] Address [address] [place] [address] Care Team Providers Care Cafeteria Counter Attendant Name Role Phone Antony LAGOS, Yuliya Primary Care Provider Ronnie Menard [phone] REASON FOR VISIT recall colonoscopy Encounters Encounter Location Date Provider Diagnosis [facility] [address] [place] [address] 11/18/2024 Ronnie Sharif Plan Of Treatment Next Appt Details Provider Name:Ronnie Sharif , 03/25/2025 03:00:00 PM, [address], [address], [place], [address], Progress Notes * DINORA BRISENODOB:1955 ( 69 yo F)Acc No.[id number]:11/18/2024 Progress Notes Patient:?DINORA BRISENO Provider:?Ronnie Sharif MD :1955???Age:69 Y???Sex:Female D ate:11/18/2024 Address:[address] [place], [place] [phone] Pcp:Yuliya Hardy MD Subjective: * Chief Complaints: * ???1. Recall colonoscopy. * Medical History:? Objective: * Vitals:? Assessment: Plan: * Treatment: * * The named appointment provid er may or may not be the originator of this progress note, and it is not deemed complete until electronically signed by the appointment provider. Sign off status: Pending * Provider:?Ronnie Sharif MD Date:? 025 Generated for Ameena george/Poly/Lita on:?01/22/2025 12:18 PM EDT
--- OUTSIDE RECORDS SUMMARY | 2025-01-22 12:18 | XMS_ITS ---
Author Organization [facility] Address [address] [place] [address] Care Team Providers Care Solution Maker Name Role Phone Antony LAGOS, Asma Primary Care Provider Ronnie Menard [phone] Encounters Encounter Location Date Provider Diagnosis [facility] [address] [place] [address] 12/10/2024 Ronnie Sharif Plan Of Treatment Next Appt Details Provider Name:Ronnie Sharif , 03/25/2025 03:00:00 PM, [address], [address], [place], [address], Progress Notes * BRISENOARDIÁNJOLANTADOB:1955 ( 69 yo F)Acc No.[id number]:12/10/2024 Patient:?DINORA BRISENO :1955???Age:69 Y???Sex:Female Address:[address] [place] [address] * true * Date:? Generated for Ernai doris/Poly/eTransmitting on:?01/22/2025 12:17 PM EDT
--- OUTSIDE RECORDS SUMMARY | 2025-01-22 12:18 | XMS_ITS | Encounter Summary ---
Author Organization [employer] [facility] Address [address] [facility] 7t [place] [address] Care Team Providers Care Director Of Category Management Name Role Phone Unavailable Primary Care Provider Unavailabl e Encounter Details Date Type Department Care Team (Latest Contact Info) Description 02/01/2021 Abstract [facility] CONVERSIONS Dental, Provider, DDS Social [...] Description 02/16/2025 3:00 PM EDT Office Visit [facility] ADULT DENTAL [address] [place] [address] Dinorah Rosalie [address] [place] [address] documented as of this encounter Visit Diagnoses Not on filedocumented in this encounter
--- OUTSIDE RECORDS SUMMARY | 2025-01-22 12:18 | XMS_ITS | Clinical Summary ---
Author Organization [employer] [facility] Address [address] [place] [address] Care Team Providers Care Field Advisor Name Role Phone Unavailable Primary Care Provider [...] 2024 Influenza Vaccine (#1) 2024 RSV Immunization Adult Patie nts (1 - 1-dose 75+ series) 2030 HIB [...]
--- OUTSIDE RECORDS SUMMARY | 2025-01-22 12:18 | XMS_ITS | Encounter Summary ---
Author Organization [employer] Address [address] [facility] 7t [place] [address] Care Team Providers Care Family Resource Management Specialist Name Role Phone Unavailable Primary Care Provider Unavailabl e Reason for Visit * Reason Onset Date Comments Appointment 05/16/2023 Encounter Details Date Type Department Care Team (Late st Contact Info) Description 05/16/2023 Telephone [facility] ADULT DENTAL [address] [place], [place] [phone] Dinorah, Rosalie [address] [place], [place] [phone] Appointment Social History Tobacco Use Types Packs/Day [...] Upcoming Encounters Date Type Department Care Team ([facility] st Contact Info) Description 02/16/2025 3:00 PM EDT Office Visit [facility] ADULT DENTAL [address] [place] [address] Rosalie Copeland [address] [place] [address] documented as of this encounter Visit Diagnoses Not on filedocumented in this encounter
--- OUTSIDE RECORDS SUMMARY | 2025-01-22 12:18 | XMS_ITS | Patient Health Record ---
Author Organization [facility] Address [address] [place] [address] Care Team Providers Care Processing Spec Name Role Phone Antony LAGOS, [facility] Primary Care Provider Ronnie Menard [phone] Reason For Referral No Information Medications Medication SIG (Take, Route, Fr equency, Duration) Notes Start Date End Date Status Meclizine HCl 50 MG 1 tablet as needed Orally prn Active Bone Essentials - as directed Orally once a day Active Central-Audrey - as directed Orally once a day Active Immunizations Vaccine Route Administration Date Status Comme nts Influenza Unknown 09/24/2019 Refused Social History Tobacco Use: Social History Observation Description Date Details (start date - stop date) Never Smoker NA - NA Tobacco Use/Smoking Question Answer Notes Patient is a nonsmoker Alcohol Screen Question Answer Notes Did you have a drink containing alcohol in the p ast year? No Points 0 Interpretation Negative Section Notes: Nonsmoker; no sig alcohol Problems Problem Type SNOMED Code ICD Code Onset Dates Problem Status W/U Status Risk Notes Problem 971480185 Encounter for screening for malignant neoplasm of colon (Z12.11) Active confirmed Problem 445675760 History of adenomatous polyp of colon (Z86.010) Active confirmed Problem [id number] Preprocedural examination (Z01.818) Active confirmed Encounters Encounter Location Date Provider Diagnosis [facility] [address] [place] [address] 12/10/2024 Ronnie Sharif Plan Of Treatment Pending Test Test Name Order Date GI BIOPSY 10/20/2019 Future Test Test Name Order Date COLONOSCOPY 09/24/2019 Next Appt Details Provider Name:Ronnie Sharif , 03/25/2025 03:00:00 PM, [address], [address], [place], [address], Insurance Providers Payer Name Payer Address Payer Phone Subscriber Number Group Number Insured Name Patient Relationship to Insured Coverage Start Date Coverage End Date MEDICARE OF [employer] [address] [place] [address] [id number] DINORA BRISENO Self - patient is the insured Medical (General) History Medical History History ICD Code Denies ID,DM,CVA,Lung disease,renal dise ase Screening colonoscopy in 10/2008 with a s mall tubular adenoma removed Thrombocytopenia-followed by Dr. Pedraza-platelet count 105K in 07/2019--normal LFT's Surgical History Surgery Date(Month/Year) Appendectomy Tubal ligation
--- OUTSIDE RECORDS SUMMARY | 2025-01-22 12:18 | XMS_ITS ---
Author Organization [facility] Address [address] [place] [address] Care Team Providers Care Shot Core Drill Operator Helper Name Role Phone Antony LAGOS, Yuliya Primary Care Provider Ronnie Menard [phone] REASON FOR VISIT Patient presents today for a recall colonoscopy Encounters Encounter Location Date Provider Diagnosis [facility] [address] [facility] [address] [place] [phone] 12/10/2024 Ronnie Sharif Plan Of Treatment Next Appt Details Provider Name:Ronnie Sharif , 03/25/2025 03:00:00 PM, [address], [address], [place], [address], Progress Notes * DINORA BRISENODOB:1955 ( 69 yo F)Acc No.[id number]:12/10/2024 Progress Notes Patient:?DINORA BRISENO Provider:?Ronnie Sharif MD :1955???Age:69 Y???Sex:Female D ate:12/10/2024 Address:[address] [place], [place] [phone] Pcp:Yuliya Hardy MD Subjective: * Chief Complaints: * ???1. Patient presents today for a recall colonoscopy. * Medical History:? Objective: * Vitals:? Assessment: Plan: * Treatment: * * The named appointment provid er may or may not be the originator of this progress note, and it is not deemed complete until electronically signed by the appointment provider. Sign off status: Pending * Provider:?Ronnie Sharif MD Date:? 025 Generated for Ameena george/Poly/Lita on:?01/22/2025 12:17 PM EDT
--- OUTSIDE RECORDS SUMMARY | 2025-01-22 12:18 | XMS_ITS | Encounter Summary ---
Author Organization [employer] [facility] Address [address] [facility] 7t [place] [address] Care Team Providers Care Exceptional Children Teacher Name Role Phone Unavailable Primary Care Provider Unavailabl e Encounter Details Date Type Department Care Team (Late st Contact Info) Description 11/16/2022 Abstract [facility] ADULT DENTAL [address] [place], [place] [phone] Gregorio Law DDS [address] [place] [address] Social History Tobacco Use Types Packs/Day Years [...] Description 02/16/2025 3:00 PM EDT Office Visit [facility] ADULT DENTAL [address] [place] [address] Rosalie Copeland [address] [place] [address] documented as of this encounter Visit Diagnoses Not on filedocumented in this encounter
--- OUTSIDE RECORDS SUMMARY | 2025-01-22 12:18 | XMS_ITS | Clinical Summary ---
Author Organization [employer] Address [address] [facility] 7t [place] [address] Care Team Providers Care Technical Services Manager Name Role Phone Unavailable Primary Care [...] Encounters Date Type Department Care Team Description 12/19/2024 10:00 AM EST Office Visit [facility] ADULT DENTAL [address] [place] [address] Gregorio Law DDS Partial edentulism, unspecified edentulism class (Primary Dx) 12/10/2024 10:30 AM EST Office Visit [facility] ADULT DENTAL [address] [place] [address] Gregorio Law DDS Partial edentulism, unspecified edentulism class (Primary Dx) 11/28/2024 10:00 AM EST Office Visit [facility] ADULT DENTAL [address] [place] [address] Gregorio Law DDS Partial edentulism, unspecified edentulism class (Primary Dx) 11/19/2024 11:00 AM EST Office Visit [facility] ADULT DENTAL [address] [place] [address] Gregorio aLw DDS Partial edentulism, unspecified edentulism class (Primary Dx) from Last 3 Months Social History Tobacco [...] Sign Reading Time Taken Comments Blood Pressure 128/74 12/19/2024 10:09 AM EST Pulse 64 11/19/2024 10:54 AM EST Temperature - - Respiratory Rate - - Oxygen Saturation - - Inhaled Oxygen Concentration - - Weight - - Height - - Body Mass Index - - Plan of Treatment Upcoming Encounters Date Type Department Care Team (Late st Contact Info) Description 02/16/2025 3:00 PM EDT Office Visit [facility] ADULT DENTAL [address] [place] [address] Dinorah Rosalie [address] [place] [address] Health Maintenance Due Date Last Done Comments [...] Vaccine (#1) 2024 Dental X-Ray: Bitewings 08/22/2024 08/21/20 23, 09/29/2022 Dental Prophylaxis 09/19/2024 03/18/2024, 08/21/2023, 09/29/2022 DTaP/Tdap/Td Vaccines (2 - T d or Tdap) 10/13/2025 10/13/2015 Tobacco Screening 12/10/2025 12/10/2024 RSV Patients and Patients Aged 60 years [...] Procedure Name Priority Date/Time Associated Diagnosis Comments 3,6,10,14,15 MAXILLARY PARTIAL DENTURE - RESIN BASE (INCLUDING, RETENTIVE/CLASPING MATERIALS, RESTS, AND TEETH) Routine 12/19/2024 10:00 AM EST WAX TRY IN Routine 12/10/2024 10:30 AM EST BITE REGISTRATION Routine 11/28/2024 10: 00 AM [...]
--- OUTSIDE RECORDS SUMMARY | 2025-01-22 12:18 | XMS_ITS | Encounter Summary ---
Author Organization [employer] [facility] Address [address] [facility] 7t [place] [address] Care Team Providers Care Surgical Technologist Name Role Phone Unavailable Primary Care Provider Unavailabl e Encounter Details Date Type Department Care Team (Latest Contact Info) Description 03/18/2019 Abstract [facility] CONVERSIONS Dental, Provider, DDS Social History [...] Description 02/16/2025 3:00 PM EDT Office Visit [facility] ADULT DENTAL [address] [place] [address] Kody Copelandaris [address] [place] [address] documented as of this encounter Visit Diagnoses Not on filedocumented in this encounter
== END 2025-01-22 11:27 | disposition home or self-care (01) ==
LOC: HO.HWS 10:58
PROVIDERS: PCP Internal Medicine; Visit Provider Obstetrics & Gynecology
DX: R87.610 Atypical squamous cells of undetermined significance on cytologic smear of cervix (ASC-US) (principal); R87.810 Cervical high risk human papillomavirus (HPV) DNA test positive
CPT/HCPCS: 57454

== ENCOUNTER 2025-01-22 10:58 | Outpatient (REF) | payer MEDICARE, SELFPAY ==
--- OUTSIDE RECORDS SUMMARY | 2025-01-22 12:55 | XMS_ITS | Encounter Summary ---
Author Organization [employer] [facility] Address [address] [facility] 7t [place] [address] Care Team Providers Care Plastic Cablemaking Machine Operator Name Role Phone Unavailable Primary Care Provider Unavailabl e Encounter Details Date Type Department Care Team (Late st Contact Info) Description 09/21/2022 Abstract [facility] ADULT DENTAL [address] [place] [address] Dental, Provider, DDS Social History Tobacco Use [...] Description 02/16/2025 3:00 PM EDT Office Visit [facility] ADULT DENTAL [address] [place] [address] Kody Copelandaris [address] [place] [address] documented as of this encounter Procedures Procedure [...]
--- OUTSIDE RECORDS SUMMARY | 2025-01-22 12:55 | XMS_ITS | Encounter Summary ---
Author Organization [employer] [facility] Address [address] [facility] 7t [place] [address] Care Team Providers Care Slide Forming Machine Tender Name Role Phone Unavailable Primary Care Provider Unavailabl e Encounter Details Date Type Department Care Team (Late st Contact Info) Description 11/16/2022 Abstract [facility] ADULT DENTAL [address] [place], [place] [phone] Gregorio Law DDS [address] [place] [address] Social History Tobacco Use Types Packs/Day Years [...] Description 02/16/2025 3:00 PM EDT Office Visit [facility] ADULT DENTAL [address] [place] [address] Rosalie Copeland [address] [place] [address] documented as of this encounter Visit Diagnoses Not on filedocumented in this encounter
--- OUTSIDE RECORDS SUMMARY | 2025-01-22 12:56 | XMS_ITS | Clinical Summary ---
Author Organization [employer] Address [address] [facility] 7t [place] [address] Care Team Providers Care Community Service Technician Name Role Phone Unavailable Primary Care [...] Description 12/19/2024 10:00 AM EST Office Visit [facility] ADULT DENTAL [address] [place] [address] Gregorio Law DDS Partial edentulism, unspecified edentulism class (Primary Dx) 12/10/2024 10:30 AM EST Office Visit [facility] ADULT DENTAL [address] [place] [address] Gregorio Law DDS Partial edentulism, unspecified edentulism class (Primary Dx) 11/28/2024 10:00 AM EST Office Visit [facility] ADULT DENTAL [address] [place] [address] Gregorio Law DDS Partial edentulism, unspecified edentulism class (Primary Dx) 11/19/2024 11:00 AM EST Office Visit [facility] ADULT DENTAL [address] [place] [address] Gregorio Law DDS Partial edentulism, unspecified edentulism [...] Description 02/16/2025 3:00 PM EDT Office Visit [facility] ADULT DENTAL [address] [place] [address] Dinorah Rosalie [address] [place] [address] Health Maintenance Due Date Last Done Comments [...]
--- OUTSIDE RECORDS SUMMARY | 2025-01-22 12:56 | XMS_ITS | Encounter Summary ---
Author Organization [employer] [facility] Address [address] [facility] 7t [place] [address] Care Team Providers Care Inspector Clip On Sunglasses Name Role Phone Unavailable Primary Care Provider Unavailabl e Encounter Details Date Type Department Care Team (Latest Contact Info) Description 03/18/2019 Abstract [facility] CONVERSIONS Dental, Provider, DDS Social History [...] Description 02/16/2025 3:00 PM EDT Office Visit [facility] ADULT DENTAL [address] [place] [address] Kody Copelandaris [address] [place] [address] documented as of this encounter Visit Diagnoses Not on filedocumented in this encounter
--- OUTSIDE RECORDS SUMMARY | 2025-01-22 12:56 | XMS_ITS | Clinical Summary ---
Author Organization [employer] [facility] Address [address] [place] [address] Care Team Providers Care Eyelet Machine Operator Name Role Phone Unavailable Primary [...]
--- OUTSIDE RECORDS SUMMARY | 2025-01-22 12:56 | XMS_ITS | Encounter Summary ---
Author Organization [employer] [facility] Address [address] [facility] 7t [place] [address] Care Team Providers Care Editorial Specialist Name Role Phone Unavailable Primary Care Provider Unavailabl e Encounter Details Date Type Department Care Team (Latest Contact Info) Description 02/01/2021 Abstract [facility] CONVERSIONS Dental, Provider, DDS Social History Tobacco [...] Description 02/16/2025 3:00 PM EDT Office Visit [facility] ADULT DENTAL [address] [place] [address] Dinorah Rosalie [address] [place] [address] documented as of this encounter Visit Diagnoses Not on filedocumented in this encounter
--- OUTSIDE RECORDS SUMMARY | 2025-01-22 12:56 | XMS_ITS | Encounter Summary ---
Author Organization [employer] Address [address] [facility] 7t [place] [address] Care Team Providers Care Breakdown Worker Name Role Phone Unavailable Primary Care Provider Unavailabl e Reason for Visit * Reason Onset Date Comments Appointment 05/16/2023 Encounter Details Date Type Department Care Team (Late st Contact Info) Description 05/16/2023 Telephone [facility] ADULT DENTAL [address] [place], [place] [phone] Dinorah, Rosalie [address] [place], [place] [phone] Appointment Social History Tobacco Use Types Packs/Day [...] Upcoming Encounters Date Type Department Care Team ([facility] st Contact Info) Description 02/16/2025 3:00 PM EDT Office Visit [facility] ADULT DENTAL [address] [place] [address] Rosalie Copeland [address] [place] [address] documented as of this encounter Visit Diagnoses Not on filedocumented in this encounter
== END 2025-01-22 10:59 | disposition home or self-care (01) ==
LOC: HO.LNP 10:58
PROVIDERS: PCP Internal Medicine; Visit Provider Obstetrics & Gynecology
DX: R87.610 Atypical squamous cells of undetermined significance on cytologic smear of cervix (ASC-US) (principal); R87.810 Cervical high risk human papillomavirus (HPV) DNA test positive
CPT/HCPCS: 57454; 88305; 88341; 88342

== ENCOUNTER 2025-02-12 12:44 | Outpatient (AMB) | payer MEDICARE, SELFPAY ==
--- NOTE | 2025-02-12 12:53 | A.OFFVIS_ITS ---
Intake Visit Reasons: colpo results Accompanied by: Self / Same As Patient Allergies No Known Allergies Allergy (Verified 02/12/25 12:53) Is last menstrual period known: No Post menopausal: Yes Patient : No HPI Comments Details: Presenting post colpo for follow-up. The patient is doing well with no complaints. The pathology showed the following: A. Endocervix, curettage: Benign atrophic squamous epithelium with reactive changes, and endocervical glandular epithelium; negative for dysplasia. B. Cervix, 1:00, biopsy: Benign atrophic squamous epithelium with reactive changes; negative for dysplasia; no endocervical glandular component. C. Cervix, 9:00, biopsy: Benign atrophic squamous epithelium with reactive changes; negative for dysplasia; no endocervical glandular component. D. Cervix, 12:00, biopsy: Benign atrophic squamous epithelium with reactive changes; negative for dysplasia; no endocervical glandular component. Comment: The atypical cells in the patient's previous Pap test ([id number]) have some similarities to the reactive changes in the current biopsy [facility] Medical History (Updated 02/12/25 @ 13:03 by Alexey Gao MD) ASCUS with positive high risk HPV cervical Surgical History History of appendectomy Hx of tubal ligation Family History Sister Liver cancer Brother Lung cancer Social History Household Members: Spouse Housing: House Alcohol intake: never Patient Tobacco Use Status: Never used Tobacco e-Cigarette/Vaping Use: Never Used Current occupational status: retired 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 Cognitive needs: No Hearing needs: No Vision needs: Yes Female Reproductive History Menstrual Age of Menarche: 14 Review of Systems Const All systems reviewed & are unremarkable except as noted in HPI and below Reports as per HPI and Reports no additional complaints GI Reports no additional complaints Reports no additional complaints Assessment & Plan Assessment & Plan (1) ASCUS with positive high risk HPV cervical: Comment: 10/13 ascus HPV high-risk positive, HPV 16/18 negative, colpo biopsy ECC negative 12/16 HPV 16 positive, 18 negative, colpo biopsy ECC negative Code(s): R87.610 - Atypical squamous cells of undetermined significance on cytologic smear of cervix (ASC-US); R87.810 - Cervical high risk human papillomavirus (HPV) DNA test positive Category: Medical Plan: Discussed with the patient the pathology results of the colposcopy biopsies & endocervical curettage . Discussed with the patient the sensitivity specificity, positive and negative predictive value in detecting cervical cancer in addition discussed the regression, persistence and progression rates. Recommended co-testing in 12 months, if cytology and or HPV are abnormal will proceed was colposcopy biopsy and endocervical curettage. Instructions given to the patient to schedule a co test appointment in 1 year. All questions answered the patient verbalized understanding. Coding Level of Care Code Est Pt Level 3 (46320) Diagnoses ASCUS with positive high risk HPV cervical R87.610; R87.810
--- OUTSIDE RECORDS SUMMARY | 2025-02-12 14:59 | XMS_ITS | Encounter Summary ---
Author Organization [employer] [facility] Address [address] [facility] 7t [place] [address] Care Team Providers Care Flavoring Maker Name Role Phone Unavailable Primary Care Provider Unavailabl e Encounter Details Date Type Department Care Team (Latest Contact Info) Description 02/01/2021 Abstract [facility]VERSION[facility] Dental, Provider, DDS Social History Tobacco Use Types Packs/Day Years Used Date Smoking Tobacco: Never Assessed Comments Unknown Sex and Gender Information Value Date Recorded Sex Assigned at Female 08/21/2022 10:22 AM EDT Legal Sex Female 10:22 AM EDT Gender Identity Female 08/21/2022 10:22 AM EDT Sexual Orientation Straight 08/21/2022 10 :22 AM EDT documented as of this encounter Plan of Treatment Not on file documented as of this encounter Visit Diagnoses Not on filedocumented in this encounter
--- OUTSIDE RECORDS SUMMARY | 2025-02-12 14:59 | XMS_ITS | Encounter Summary ---
Author Organization [employer] Address [address] [facility] 7t [place] [address] Care Team Providers Care Label Machine Operator Name Role Phone Unavailable Primary Care Provider Unavailabl e Encounter Details Date Type Department Care Team (Late st Contact Info) Description 11/16/2022 Abstract [facility] ADULT DENTAL [address] [place], [place] [phone] Gregorio Law DDS [address] [place], [place] [phone] Social History Tobacco Use Types Packs/Day Years [...]
--- OUTSIDE RECORDS SUMMARY | 2025-02-12 14:59 | XMS_ITS | Encounter Summary ---
Author Organization [employer] [facility] Address [address] [facility] 7t [place] [address] Care Team Providers Care High School Music Director Name Role Phone Unavailable Primary Care Provider Unavailabl e Encounter Details Date Type Department Care Team (Late st Contact Info) Description 09/21/2022 Abstract [facility] ADULT DENTAL [address] [place] [address] Dental, Provider, DDS Social History Tobacco Use [...] on file documented as of this encounter Procedures Procedure [...]
--- OUTSIDE RECORDS SUMMARY | 2025-02-12 14:59 | XMS_ITS | Clinical Summary ---
Author Organization [employer] [facility] Address [address] [place] [address] Care Team Providers Care System Trainer Name Role Phone Unavailable Primary Care Provider [...] - 2023-2 5 season) 2024 Influenza Vaccine (Season Ended) 2025 RSV Immunization Adult Patie nts (1 - [...] age to complete this topic Meningococcal B Vaccine Aged Out No l onger eligible based on patient's age to complete this topic RSV Immunization Patients Un katina 20 months Aged Out No longer eligible b ased on patient's age to complete this topic Varicella Vaccines Aged Out No longer eligible based on patient's age to complete this topic
--- OUTSIDE RECORDS SUMMARY | 2025-02-12 14:59 | XMS_ITS | Encounter Summary ---
Author Organization [employer] [facility] Address [address] [facility] 7t [place] [address] Care Team Providers Care Rn Practitioner Name Role Phone Unavailable Primary Care Provider Unavailabl e Encounter Details Date Type Department Care Team (Latest Contact Info) Description 03/18/2019 Abstract [facility] CONVERSIONS Dental, Provider, DDS Social History Tobacco [...]
--- OUTSIDE RECORDS SUMMARY | 2025-02-12 14:59 | XMS_ITS | Clinical Summary ---
Author Organization [employer] Address [address] [facility] 7t [place] [address] Care Team Providers Care Motor Lodge Clerk Name Role Phone Unavailable Primary Care [...] Description 12/19/2024 10:00 AM EST Office Visit [facility] [address] [place] [address] Gregorio Law DDS Partial edentulism, unspecified edentulism class (Primary Dx) 12/10/2024 10:30 AM EST Office Visit [facility] [address] [place] [address] Gregorio Law DDS Partial edentulism, unspecified edentulism class (Primary Dx) 11/28/2024 10:00 AM EST Office Visit [facility] [address] [place] [address] Gregorio Law DDS Partial edentulism, unspecified edentulism class (Primary Dx) 11/19/2024 11:00 AM EST Office Visit [facility] [address] [place] [address] Gregorio Law DDS Partial edentulism, unspecified edentulism [...] Mass Index - - Plan of Treatment Health Maintenance Due Date [...]
--- OUTSIDE RECORDS SUMMARY | 2025-02-12 14:59 | XMS_ITS | Encounter Summary ---
Author Organization [employer] Address [address] [facility] 7t [place] [address] Care Team Providers Care Cigar Bander Hand Name Role Phone Unavailable Primary Care Provider Unavailabl e Reason for Visit * Reason Onset Date Comments Appointment 05/16/2023 Encounter Details Date Type Department Care Team (Late st Contact Info) Description 05/16/2023 Telephone [facility] [address] [place], [place] [phone] Dinorah, Rosalie [address] [place], [place] [phone] Appointment Social History Tobacco Use Types Packs/Day [...] documented in this encounter Plan of Treatment Not on file documented as of this encounter Visit Diagnoses Not on filedocumented in this encounter
== END 2025-02-12 13:05 | disposition home or self-care (01) ==
LOC: HO.HWS 12:44
PROVIDERS: PCP Internal Medicine; Visit Provider Obstetrics & Gynecology
DX: R87.610 Atypical squamous cells of undetermined significance on cytologic smear of cervix (ASC-US) (principal); R87.810 Cervical high risk human papillomavirus (HPV) DNA test positive
CPT/HCPCS: 99213

== ENCOUNTER → 2025-02-12 12:44 | Outpatient (BNVA) | payer MEDICARE, SELFPAY | PROVIDERS: PCP Internal Medicine; Visit Provider Obstetrics & Gynecology | DX: R87.610 Atypical squamous cells of undetermined significance on cytologic smear of cervix (ASC-US) (principal); R87.810 Cervical high risk human papillomavirus (HPV) DNA test positive | CPT/HCPCS: 99212 ==

== ENCOUNTER 2025-03-11 11:24 | Outpatient (AMB) | payer MEDICARE, SELFPAY ==
[2025-03-11 11:28] VITALS: BP 118/68; PULSE 86; O2SAT 95; BMI 29.2
--- NOTE | 2025-03-11 11:28 | A.OFFPC_ITS ---
Vital Signs 03/11/25 11:28 Height 5 ft 7 in Weight 186 lb 6 oz BMI 29.2 BP 118/68 Blood Pressure Location Rt brachial Position Sitting Pulse 86 Pulse Source Pulse Oximeter Pulse Oximetry (%) 95 Oxygen Delivery Method Room Air Intake Visit Reasons: Urinary tract infection Allergies No Known Allergies Allergy (Verified 03/11/25 11:28) Medication List - Last Reconciled 03/11/25 by Yuliya Hardy MD ascorbic acid (vitamin C) (Vitamin C) 200 mg PO DAILY meclizine 25 mg PO .qd PRN 30 days multivitamin 1 tab PO DAILY Tobacco use date assessed: 03/11/25 Fall risk assessment: No Falls in past year Last assessed Fall Risk: 03/11/25 Dental Screening Dental Screen Date: 03/11/25 Did you have a dental visit in the last 12 months?: Yes Did you have a dental problem in the last 6 months where you did not have access to dental care?: No Was dental information given to patient?: Patient has dentist HPI Urinary tract infection HPI Details History - The patient is a 69-year-old female pr esenting with management concerns related to dizziness and urinary symptoms. - Reports of dizziness have been ongoing but are improving; she takes meclizine as needed when she anticipates the onset of dizziness, which resolves in about two days. - Urinary symptoms initiated a couple of days prior include an unusual sensation in the throat associated with micturition. The patient denies burning, back pain, nausea, or vomiting. - There is a history of a home test for urinary concerns conducted about a month ago, which returned inconclusive results. - There is no further specificity provid ed on past treatments for these symptoms, although symptom management with antibiotics is considered necessary. - The patient also reports intermittent skin itching with associated pimple formation. Previously used a cream that offered temporary relief but cannot recall the name of the cream. - Past medical interventions for colon c ancer screening are vague; the last colonoscopy was conducted over five years ago at [facility]. There was a request for follow-up with a Cologuard test due to an inconclusive test result from a previous screening. Problem List - Dizziness - Urinary Tract Infection - Skin Itching with Associated Lesion - Colon Cancer Screening Follow-up Patient Instructions - Take antibiotics as prescribed for uri nary symptoms. 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 - Apply the prescribed cream for itching as needed at night, and discontinue once the itch resolves. - Monitor the symptoms. If they worsen o r additional symptoms appear, seek care promptly. - Await the Cologuard test kit at home a nd follow instructions for mail-in sampling collection. - Await follow-up communication alexandre pino previous colonoscopy results from [facility]. Review of Systems - General: No fever no chills - Neurological: No headaches no dizziness - Ear nose throat: No sore throat no hearing difficulty no ear pain - Cardiovascular: No syncope, no chest pain, no palpitations - Gastrointestinal: No nausea vomiting or diarrhea - Endocrine: No polydipsia no heat intolerance Physical Exam General: No acute distress HEENT: No acute findings Neck: Supple Respiratory system: Able to talk in full sentences, no audible wheeze Cardiovascular: S1-S2 regular in rate and rhythm Gastrointestinal: No pain Extremities: No new findings TRACTOR TRAILER DRIVER: Alert awake oriented x3 motor sensory intact Skin: Normal turgor, reports intermittent itching between the thighs bilateral PFSH Medical History ASCUS with positive high risk HPV cervical Surgical History History of appendectomy Hx of tubal ligation Family History Sister Liver cancer Brother Lung cancer Social History Household Members: Spouse Housing: House Alcohol intake: never Patient Tobacco Use Status: Never used Tobacco e-Cigarette/Vaping Use: Never Used Current occupational status: retired 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 1. Little interest or pleasure in doing things: not at all 2. Feeling down, depressed, or hopeless: not at all 3. Trouble falling or staying asleep, or sleeping too much: not at all 4. Feeling tired or having little energy: not at all 5. Poor appetite or overeating: not at all 6. Feeling bad about yourself - or that you are a failure or have let yourself or your family down: not at all 7. Trouble concentrating on things, such as reading the newspaper or watching television: not at all 8. Moving or speaking so slowly that other people could have noticed. Or the opposite - being so fidgety or restless that you have been moving around a lot more than usual: not at all 9. Thoughts that you would be better off or of hurting yourself in some way: not at all Total score: 0 Depression Screening Interpretation: Negative Depression Screening Done: Yes 62447 - PHQ-9 Billing: Yes Source: Developed by Drs. Ronnie Garcia, Loreto Richardson, Kunal Vasquez and colleagues, with an educational nichole from [employer]. Thrive Questionnaire Date Thrive assessed: 03/11/25 I am a: Patient What is your living situation today?: I have a steady place to live Within the past 12 months, did the food you bought not last and you didn't have the money to get more?: Never true Within the past 12 months, did you worry whether your food would run out before you got money to buy more?: Never true Do you have trouble paying for medicines?: No Do you have trouble getting transportation to medical appointments?: No Do you have trouble paying your heating and electricity bill?: No Do you have trouble taking care of your child, family member or friend?: No Do you have trouble with day-to-day activities such as bathing, preparing meals, shopping, managing finances, etc.?: No Are you currently unemployed and looking for a job?: No Are you interested in more education?: No Please select the resources that you would like help with: None Currently or been in a relationship where the following occur: No concerns reported THRIVE Score: 0 AUDIT C Alcohol Use Questionnaire (AUDIT-C) 1. How often do you have a drink containing alcohol?: Never 3. How often do you have six or more drinks on one occasion?: Never Total Score: 0 Score Reviewed/Action Taken: Yes CHUYITA-7 AMB Questionnaire CHUYITA-7 Date CHUYITA - 7 assessed: 03/11/25 Feeling nervous, anxious, or on edge: 0 = Not at all Not being able to stop or control worryin = Not at all Worrying too much about different things: 0 = Not at all Trouble relaxin = Not at all Being so restless that it is hard to sit still: 0 = Not at all Becoming easily annoyed or irritable: 0 = Not at all Feeling afraid as if something awful might happen: 0 = Not at all Total CHUYITA-7 score (0-4 normal; 5-9 mild; 10-14 moderate; 15-21 severe): 0 Source: Developed by Drs. Ronnie Garcia, Loreto Richardson, Kunal Vasquez and colleagues, with an educational nichole from [employer]. CHUYITA-7 Assessment Billing CHUYITA-7 Assessment Tool: CHUYITA-7 Assessment 68567 Physical exam (Primary Care) Vital Signs: Last Vital Signs Pulse 86 03/11/25 11:28 BP 118/68 03/11/25 11:28 Pulse Ox 95 03/11/25 11:28 Oxygen Delivery Method Room Air 03/11/25 11:28 BMI result Body Mass Index 29.2 Tobacco/Smoking Status: Tobacco use Status Tobacco use date assessed 03/11/25 03/11/25 11:33 Patient Tobacco Use Status Never used Tobacco 03/11/25 11:33 e-Cigarette/Vaping Use Never Used 03/11/25 11:33 PHQ-9: PHQ-9 Score PHQ-9: Total score 0 03/11/25 14:06 Depression Screening Interpretation: Negative Thrive Assessment: Date of Thrive Assessment Date Thrive assessed 03/11/25 03/11/25 11:33 Currently or been in a relationship where the following occur: No concerns reported Results AMB Urinalysis, Automated UA Leukoctes 15 Tony/uL Last Edit by Leilani Thompson CMA on 03/11/25 11:51 UA Nitrite Negative Last Edit by Leilani Thompson CMA on 03/11/25 11:51 UA Urobilinogen 0.2 mg/dL Last Edit by Leilani Thompson CMA on 03/11/25 11:5 1 UA Protein 0 mg/dL Last Edit by Leilani Thompson CMA on 03/11/25 11:51 UA pH 6.0 Last Edit by Leilani Thompson CMA on 03/11/25 11:51 UA Blood 25 Wesley/uL Last Edit by Leilani Thompson CMA on 03/11/25 11:51 UA Specific [place] 1.010 Last Edit by Leilani Thompson CMA on 03/11/25 11: 51 UA Ketone Negative Last Edit by Leilani Thompson CMA on 03/11/25 11:51 UA Bilirubin 0 mg/dL Last Edit by Leilani Thompson CMA on 03/11/25 11:51 UA Glucose 0 mg/dL Last Edit by Leilani Thompson CMA on 03/11/25 11:51 Results Reviewed Results Reviewed: Laboratory Last Values Urine pH (Auto) 6.0 03/11/25 11:49 Specific [place] (Auto) 1.010 03/11/25 11:49 Urine Protein (Auto) 0 mg/dL 03/11/25 11:49 Glucose (UA)(Auto) 0 mg/dL 03/11/25 11:49 Urine Ketones (Auto) Negative 03/11/25 11:49 Urine Blood (Auto) 25 Wesley/uL 03/11/25 11:49 Urine Nitrite (Auto) Negative 03/11/25 11:49 Urine Bilirubin (Auto) 0 mg/dL 03/11/25 11:49 Urine Urobilinogen (Auto) 0.2 mg/dL 03/11/25 11:49 Leukocyte Esterase (Auto) 15 Tony/uL 03/11/25 11:49 Coding Level of Care Code Est Pt Level 4 (31742) Diagnoses Acute cystitis with hematuria N30.01 Vertigo R42 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 Colon cancer screening Z12 Additional Codes CHUYITA-7 Assessment Billing - CHUYITA-7 Assessment Tool: CHUYITA-7 Assessment 70253 ([id number]) PHQ-9 - 41461 - PHQ-9 Billing: Yes ([id number]) Assessment & Plan Assessment & Plan (1) Acute cystitis with hematuria: Code(s): N30.01 - Acute cystitis with hematuria Category: Medical (2) Vertigo: Code(s): R42 - Dizziness and giddiness Category: Medical (3) 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 - Reports of dizziness have been ongoing but are improving; she takes meclizine as needed when she anticipates the onset of dizziness, which resolves in about two days. - Urinary symptoms initiated a couple of days prior include an unusual sensation in the throat associated with micturition. The patient denies burning, back pain, nausea, or vomiting. - There is a history of a home test for urinary concerns conducted about a month ago, which returned inconclusive results. - There is no further specificity provided on past treatments for these symptoms, although symptom management with antibiotics is considered necessary. - The patient also reports intermittent skin itching with associated pimple formation. Previously used a cream that offered temporary relief but cannot recall the name of the cream. - Past medical interventions for colon cancer screening are vague; the last colonoscopy was conducted over five years ago at [facility]. There was a request for follow-up with a Cologuard test due to an inconclusive test result from a previous screening. Problem List - Dizziness - Urinary Tract Infection - Skin Itching with Associated Lesion - Colon Cancer Screening Follow-up Patient Instructions - Take antibiotics as prescribed for urinary symptoms. 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 - Apply the prescribed cream for itching as needed at night, and discontinue once the itch resolves. - Monitor the symptoms. If they worsen or additional symptoms appear, seek care promptly. - Await the Cologuard test kit at home and follow instructions for mail-in sampling collection. - Await follow-up communication regarding previous colonoscopy results from [facility]. Orders: Orders AMB Urinalysis Automated Today Z13.9 - Encounter for screening, unspecified Medications: New clobetasol 0.05% 1 appl topical BEDTIME 60 grams 0RF nitrofurantoin monohyd/m-cryst 100 mg (Macrobid) must administer with a meal/food 100 mg PO Q12H 5 days 10 caps 0RF
--- OUTSIDE RECORDS SUMMARY | 2025-03-11 12:42 | XMS_ITS | Encounter Summary ---
Author Organization [email or web address] Address [address] [facility] 7t [place] [address] Care Team Providers Care Safety Instructor Name Role Phone Unavailable Primary Care Provider Unavailabl e Reason for Visit * Reason Onset Date Comments Appointment 05/16/2023 Encounter Details Date Type Department Care Team (Late st Contact Info) Description 05/16/2023 Telephone [facility] ADULT DENT[facility] [address] [place], [place] [phone] Dinorah, Rosalie [address] [place] [address] Appointment Social History Tobacco Use Types Packs/Day [...] they were still on the waiting list DR documented in this encounter Plan of Treatment Not on file documented as of this encounter Visit Diagnoses Not on filedocumented in this encounter
--- OUTSIDE RECORDS SUMMARY | 2025-03-11 12:42 | XMS_ITS | Clinical Summary ---
Author Organization [employer] [facility] Address [address] [place] [address] Care Team Providers Care Commercial Manager Name Role Phone Unavailable Primary Care [...]
--- OUTSIDE RECORDS SUMMARY | 2025-03-11 12:42 | XMS_ITS | Encounter Summary ---
Author Organization [employer] [facility] Address [address] [facility] 7t [place] [address] Care Team Providers Care Lead Pharmacy Technician Name Role Phone Unavailable Primary Care Provider Unavailabl e Encounter Details Date Type Department Care Team (Latest Contact Info) Description 03/18/2019 Abstract [facility] Dental, Provider, DDS Social [...]
--- OUTSIDE RECORDS SUMMARY | 2025-03-11 12:42 | XMS_ITS | Encounter Summary ---
Author Organization [employer] Address [address] [facility] [address]t [place] [address] Care Team Providers Care Roving Hand Name Role Phone Unavailable Primary Care Provider Unavailabl e Encounter Details Date Type Department Care Team (Late st Contact Info) Description 09/21/2022 Abstract [facility] ADULT D[facility]AL [address] [place] [address] Dental, Provider, DDS Social History Tobacco Use [...]
--- OUTSIDE RECORDS SUMMARY | 2025-03-11 12:42 | XMS_ITS | Encounter Summary ---
Author Organization [employer] Address [address] [facility] 7t [place] [address] Care Team Providers Care Tissue Specialist Name Role Phone Unavailable Primary Care Provider Unavailabl e Encounter Details Date Type Department Care Team (Late st Contact Info) Description 11/16/2022 Abstract [facility] ADULT DENTAL [address] [place], [place] [phone] Gregorio Law DDS [address] [place], [place] [phone] Social History Tobacco Use Types Packs/Day Years [...]
--- OUTSIDE RECORDS SUMMARY | 2025-03-11 12:42 | XMS_ITS | Encounter Summary ---
Author Organization [employer] [facility] Address [address] [facility] 7[address] [place] [address] Care Team Providers Care Mail Carriers Supervisor Name Role Phone Unavailable Primary Care [...]
--- OUTSIDE RECORDS SUMMARY | 2025-03-11 12:42 | XMS_ITS | Clinical Summary ---
Author Organization [employer] Address [address] [facility] 7t [place] [address] Care Team Providers Care Market Maker Name Role Phone Unavailable Primary Care [...] Description 12/19/2024 10:00 AM EST Office Visit [facility] ADULT DENTAL [address] [place] [address] Gregorio Law DDS Partial edentulism, unspecified edentulism [...] AND TEETH) Routine 12/19/2024 10:00 AM EST Full PROPHYLAXIS - ADULT Routine 024 3:00 PM EDT Dental calculus Periodontal disease BITEWINGS - 4 RADIOGRAPHIC IMAGES Routine 08/21/2023 1:00 PM EDT Dental calculus Generalized gingival recession Periodontal disease PERIODIC ORAL EVALUATION - ESTABLISHED PATIENT Routine 08/21/2023 1:00 PM EDT from Last 3 Months or Most Recently Relevant to Health Maintenance
--- OUTSIDE RECORDS SUMMARY | 2025-03-11 12:42 | XMS_ITS ---
Author Organization [facility] Address [address] [place] [address] Care Team Providers Care Tire Layer Name Role Phone Antony LAGOS, Asma Primary Care Provider Ronnie Menard [phone] Encounters Encounter Location Date Provider Diagnosis [facility] [address] [place] [address] 12/10/2024 Ronnie Sharif Plan Of Treatment Next Appt Details Provider Name:Ronnie Sharif , 03/25/2025 03:00:00 PM, [address], [address], [place], [address], Progress Notes * BRISENOADRIÁNJOLANTADOB:1955 ( 69 yo F)Acc No.[id number]:12/10/2024 Patient:?DINORA BRISENO :1955???Age:69 Y???Sex:Female Address:[address] [place] [id number] * true * Date:? Generated for Printi doris/Poly/eTransmitting on:?03/11/2025 12:42 PM EDT
--- OUTSIDE RECORDS SUMMARY | 2025-03-11 12:43 | XMS_ITS | Patient Health Record ---
Author Organization [facility] Address [address] [place] [address] Care Team Providers Care Phd Internship Name Role Phone [facility]AGOS[facility] Primary Care Provider Ronnie Menard [phone] Reason For Referral No Information Medications Medication [...] Problem Status W/U Status Risk Notes Problem [id number] Encounter for screening for malignant neoplasm of colon (Z12.11) Active confirmed Problem [id number] History of adenomatous polyp of colon (Z86.010) Active confirmed Problem [id number] Preprocedural examination (Z01.818) Active confirmed Encounters Encounter Location Date Provider Diagnosis [facility] [address] [place] [address] 12/10/2024 Ronnie Sharif Plan Of Treatment Pending Test Test Name Order Date GI BIOPSY 10/20/2019 Future Test Test Name Order Date COLONOSCOPY 09/24/2019 Next Appt Details Provider Name:Ronnie Sharif , 03/25/2025 03:00:00 PM, [address], [address], [place], [address], Insurance Providers Payer Name Payer Address Payer Phone Subscriber Number Group Number Insured Name Patient Relationship to Insured Coverage Start Date Coverage End Date MEDICARE OF [employer] [address] [place] [address] [id number] DINORA BRISENO Self - patient is the insured Medical (General) History Medical History History ICD Code Denies OR,DM,CVA,Lung disease,renal dise ase Screening colonoscopy in 10/2008 with a s mall tubular adenoma removed Thrombocytopenia-followed by Dr. Pedraza-platelet count 105K in 07/2019--normal LFT's Surgical History Surgery Date(Month/Year) Appendectomy Tubal ligation
--- OUTSIDE RECORDS SUMMARY | 2025-03-11 12:43 | XMS_ITS ---
Author Organization [facility] Address [address] [place] [address] Care Team Providers Care Farm Contractor Name Role Phone Antony LAGOS, Yuliya Primary Care Provider Ronnie Menard [phone] REASON FOR VISIT recall colonoscopy Encounters Encounter Location Date Provider Diagnosis [facility] [address] [place] [address] 11/18/2024 Ronnie Sharif Plan Of Treatment Next Appt Details Provider Name:Ronnie Sharif , 03/25/2025 03:00:00 PM, [address], [address], [place], [address], Progress Notes * DINORA BRISENODOB:1955 ( 69 yo F)Acc No.[id number]:11/18/2024 Progress Notes Patient:?DINORA BRISENO Provider:?Ronnie Sharif MD :1955???Age:69 Y???Sex:Female D ate:11/18/2024 Address:[address] [place], [place] [id number] Pcp:Yuliya Hardy MD Subjective: * Chief Complaints: [...] MD Date:? 025 Generated for Ameena george/Poly/Lita on:?03/11/2025 12:43 PM EDT
--- OUTSIDE RECORDS SUMMARY | 2025-03-11 12:43 | XMS_ITS ---
Author Organization [facility] Address [address] [place] [address] Care Team Providers Care Refractory Worker Name Role Phone Antony LAGOS, Yuliya Primary Care Provider Ronnie Menard [phone] REASON FOR VISIT Patient presents today for a recall colonoscopy Encounters Encounter Location Date Provider Diagnosis [facility] [address] [place] [phone] 12/10/2024 Ronnie Sharif Plan Of Treatment Next Appt Details Provider Name:Ronnie Sharif , 03/25/2025 03:00:00 PM, [address], [address], [place], [address], Progress Notes * DINORA BRISENODOB:1955 ( 69 yo F)Acc No.[id number]:12/10/2024 Progress Notes Patient:?DINORA BRISENO Provider:?Ronnie Sharif MD :1955???Age:69 Y???Sex:Female D ate:12/10/2024 Address:[address] [place] [id number] Pcp:Yuliya Hardy MD Subjective: * Chief Complaints: [...] Date:? 025 Generated for Ameena george/Poly/Lita on:?03/11/2025 12:42 PM EDT
== END 2025-03-11 11:56 | disposition home or self-care (01) ==
LOC: HO.HMCC 11:25
PROVIDERS: PCP Internal Medicine; Visit Provider Internal Medicine
DX: N30.01 Acute cystitis with hematuria (principal); R42 Dizziness and giddiness; L81.7 Pigmented purpuric dermatosis; Z12.11 Encounter for screening for malignant neoplasm of colon; Z13.9 Encounter for screening, unspecified

== ENCOUNTER → 2025-03-11 11:24 | Outpatient (BNVA) | payer MEDICARE, SELFPAY | PROVIDERS: PCP Internal Medicine; Visit Provider Internal Medicine | DX: N30.01 Acute cystitis with hematuria (principal); R42 Dizziness and giddiness; L81.7 Pigmented purpuric dermatosis | CPT/HCPCS: 81003; 96127; 99212 ==

== ENCOUNTER 2025-03-26 12:38 | Outpatient (REF) | payer MEDICARE, SELFPAY ==
--- NOTE | ~2025-03-26 | MM_ITS ---
EXAMINATION: MM SCREENING DIGITAL BREAST TOMOSYNTHESIS, BILATERAL CLINICAL INFORMATION: Screening. Asymptomatic. COMPARISON: Mammography: Comparison is made with available priors TECHNIQUE: Digital breast mammography with tomosynthesis is performed in both the craniocaudal and mediolateral oblique views along with computer-aided detection (CAD). FINDINGS: There are scattered areas of fibroglandular density (ACR BI-RADS breast composition Category b). There are no significant masses, abnormal calcifications, or other abnormalities. MM/MM tomosynthesis screening BI IMPRESSION: No mammographic evidence of malignancy. ASSESSMENT: BI-RADS BI-RADS 1 - Negative RECOMMENDATION: Routine annual mammography screening. 1 year F/U This examination should not preclude the clinical evaluation of a suspicious palpable abnormality. This patient's information was entered into a reminder system with a target due date for their next mammogram. Electronically signed by: Jennifer Santos DO 03/30/2025 05:24 PM EDT
--- NOTE | ~2025-03-26 | MM_ITS ---
EXAMINATION: DXA BONE DENSITY AXIAL HISTORY: Z78.0 - Asymptomatic menopausal state TECHNIQUE: SEA Dual energy absorptiometry (DEXA) of the lumbar spine, total left hip, and femoral neck was performed. COMPARISON: Comparison is made with the prior examination dated 11/07/2022. FINDINGS: The bone mineral density of the lumbar spine is 0.926, corresponding to a T-score of -2.3, and a Z-score of -1.2. This is indicative of osteopenia. This represents a BMD change of -1.5% compared to the prior exam. This is not statistically significant. The bone mineral density of the left total hip is 0.921, corresponding to a T-score of -0.7, and a Z-score of 0.3. This is indicative of normal bone mineral density. This represents a BMD change of -3.1% compared to the prior exam. This is not statistically significant. The bone mineral density of the left femoral neck is 0.941, corresponding to a T-score of -0.7, and a Z-score of 0.6. This is indicative of normal bone mineral density. This represents a BMD change of -6.0% compared to the prior exam. FRACTURE RISK: The FRAX index suggests a ten year probability of major osteoporotic fracture of 4.5%, and of hip fracture 0.4%. MM/XR DEXA axial skeleton IMPRESSION: Based on bone mineral density, and according to World Health Organization (WHO) criteria, the diagnosis is consistent with osteopenia. All bone density values are in grams per centimeter squared (g/cm2). Statistically, 68% of repeat scans fall within 1 SD (+/- 0.010 g/cm2 for AP spine L1-L4) and 1 SD (+/- 0.012 g/cm2 for femur total) FRAX is a trademark of the [employer] Metabolic Bone Disease, a World Health Organization (WHO) Collaborating Center. Electronically signed by: Ronnie Sargent MD 03/26/2025 02:17 PM EDT
--- OUTSIDE RECORDS SUMMARY | 2025-03-26 14:44 | XMS_ITS | Encounter Summary ---
Author Organization [employer] Address [address] [facility] 7t [place] [address] Care Team Providers Care Draw Frame Tender Name Role Phone Unavailable Primary Care Provider Unavailabl e Encounter Details Date Type Department Care Team (Late st Contact Info) Description 11/16/[address] [facility] ADULT DENTAL [address] [place], [place] [phone] Gregorio Law DDS [address] [place], [place] [phone] Social History Tobacco Use Types Packs/Day Years [...]
== END 2025-03-26 12:39 | disposition home or self-care (01) ==
LOC: HO.MAMMO 12:38
PROVIDERS: PCP Internal Medicine; Referring Provider Obstetrics & Gynecology; Visit Provider Internal Medicine
DX: Z12.31 Encounter for screening mammogram for malignant neoplasm of breast (principal); Z13.820 Encounter for screening for osteoporosis; Z78.0 Asymptomatic menopausal state
CPT/HCPCS: 77063; 77067; 77080

== ENCOUNTER → 2025-03-26 13:30 | Outpatient (BNV) | payer MEDICARE, SELFPAY | PROVIDERS: PCP Internal Medicine; Referring Provider Obstetrics & Gynecology; Visit Provider Radiology Diagnostic Radiology | DX: E28.39 Other primary ovarian failure (principal) | CPT/HCPCS: 77080 ==

== ENCOUNTER 2025-04-09 10:04 | Outpatient (AMB) | payer MEDICARE, SELFPAY ==
--- NOTE | 2025-04-09 10:36 | MHC.OFFVIS ---
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 DEXA scan showed the following: ' The bone mineral density of the lumbar spine is 0.926, corresponding to a T-score of -2.3, and a Z-score of -1.2. This is indicative of osteopenia. This represents a BMD change of -1.5% compared to the prior exam. This is not statistically significant. The bone mineral density of the left total hip is 0.921, corresponding to a T-score of -0.7, and a Z-score of 0.3. This is indicative of normal bone mineral density. This represents a BMD change of -3.1% compared to the prior exam. This is not statistically significant. The bone mineral density of the left femoral neck is 0.941, corresponding to a T-score of -0.7, and a Z-score of 0.6. This is indicative of normal bone mineral density. This represents a BMD change of -6.0% compared to the prior exam. FRACTURE RISK: The FRAX index suggests a ten year probability of major osteoporotic fracture of 4.5%, and of hip fracture 0.4%. 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 Cognitive needs: No Hearing needs: No Vision needs: Yes Female Reproductive History Menstrual Age of Menarche: 14 Review of Systems Const All systems reviewed & are unremarkable except as noted in HPI and below Reports as per HPI and Reports no additional complaints GI Reports no additional complaints Reports no additional complaints Physical Exam Vital Signs: BMI result Body Mass Index 29.1 Assessment & Plan Assessment & Plan (1) Osteopenia: Code(s): M85.80 - Other specified disorders of bone density and structure, unspecified site Category: Medical Plan: Discussed with the patient the DEXA results and FRAX risk. FRAX risk and T score showed no evidence of osteoporosis. Discussed with the patient all the options for osteoporosis prevention including lifestyle modifications including Ca+D supplements 1200 mg po qd/800 MIU, Weight bearing exercises and proteine supplements. The patient verbalized understanding and agreed plan will repeat DEXA in 2 years. Coding Level of Care Code Est Pt Level 3 (45680) Diagnoses Osteopenia M85.80
[2025-04-09 10:38] VITALS: BMI 29.1
--- OUTSIDE RECORDS SUMMARY | 2025-04-09 11:20 | XMS_ITS | Encounter Summary ---
Author Organization [employer] Address [address] [place] [address] Care Team Providers Care Store Merchandiser Name Role Phone Unavailable Primary Care Provider Unavailabl e Encounter Details Date Type Department Care Team (Late st Contact Info) Description 11/16/2022 Abstract [facility] ADULT DENT[facility] [address] [place], [place] [phone] Gregorio Law DDS [address] [place], [place] [phone] Social History Tobacco Use Types Packs/Day Years [...]
== END 2025-04-09 10:41 | disposition home or self-care (01) ==
LOC: HO.HWS 10:04
PROVIDERS: PCP Internal Medicine; Visit Provider Obstetrics & Gynecology
DX: M85.80 Other specified disorders of bone density and structure, unspecified site (principal)
CPT/HCPCS: 99213

== ENCOUNTER → 2025-04-09 10:04 | Outpatient (BNVA) | payer MEDICARE, SELFPAY | PROVIDERS: PCP Internal Medicine; Visit Provider Obstetrics & Gynecology | DX: M85.80 Other specified disorders of bone density and structure, unspecified site (principal) | CPT/HCPCS: 99212 ==

== ENCOUNTER 2025-05-18 10:31 | Outpatient (REF) | payer MEDICARE, SELFPAY ==
--- OUTSIDE RECORDS SUMMARY | 2024-12-10 11:00 | XMS_ITS ---
Author Organization [facility] Address [address] [facility] [address] [place] [address] Care Team Providers Care Information Services Manager Name Role Phone Antony LAGOS, Yuliya Primary Care Provider Ronnie Menard [phone] REASON FOR VISIT Patient presents today for a recall colonoscopy Encounters Encounter Location Date Provider Diagnosis [facility] [address] [facility] [address] [place] [address] 12/10/2024 Ronnie Sharif Plan Of Treatment Next Appt Details Provider Name:Ronnie Sharif , 06/17/2025 10:30:00 AM, [address] [place] [address] , [place], [place], [phone], Progress Notes * DINORA BRISENODOB:1955 ( 70 yo F)Acc No.[id number]:12/10/2024 Progress Notes Patient: DINORA KAMARA Provider: Lucho Sharif MD :1955 A ge:69 Y S ex:Female Date:12/10/2024 Address:[address] [place] [phone] Pcp:Yuliya Hardy MD Subjective: * Chief Complaints: * 1 . Patient presents today for a recall colonoscopy. * Medical History: Objective: * Vitals: Assessment: Plan: * Treatment: * * The named appointment provid er may or may not be the originator of this progress note, and it is not deemed complete until electronically signed by the appointment provider. Sign off status: Pending * Provider: Lucho Sharif MD Date: 0 12/10/2024 Generated for Ameena george/Poly/Franklynitting on: 0 05/18/2025 11:43 AM EDT
--- OUTSIDE RECORDS SUMMARY | 2025-05-18 11:43 | XMS_ITS | Clinical Summary ---
Author Organization [employer] [facility] ity Address [address] [place] [address] Care Team Providers Care Senior Etl Developer Name Role Phone Unavailable Primary Care Provider [...] Vaccine ( - 2023-2 5 season) 2024 Depression Screening 10/22/2024 Influenza Vaccine (#1) 2025 RSV Immunization Adult Patie nts (1 [...]
--- OUTSIDE RECORDS SUMMARY | 2025-05-18 11:43 | XMS_ITS | Patient Health Record ---
Author Organization [facility] Address [address] [place] [address] Care Team Providers Care Hris Analyst Name Role Phone Antony LAGOS, Asma Primary Care Provider Jessica Graham Unavailable [phone] Allergies No Known Allergies Reason For Referral No Information Medications Medication SIG (Take, Route, Fr equency, Duration) Notes Start Date End Date Status Ketoconazole 2 % 1 application Apply a thin layer to externally to feet, even between toes Twice a day; Duration: 30 days Active Immunizations Vaccine Route Administration Date Status Comme nts Influenza Unknown 05/18/2025 Refused Social History Tobacco use other than smoking: Question Answer Notes Are you an other tobacco user? No Tobacco Control (Standard) Question Answer Notes Additional Findings: Tobacco non-user Current no nsmoker AUDIT-C (Standard) Question Answer Notes Did you have a drink containing alcohol in the p ast year? No Points 0 Interpretation Negative Vital Signs Blood pressure diastolic 81 mm Hg 05/18/2025 Height 5 ft in 05/18/2025 Blood pressure systolic 120 mm Hg 05/18/2025 Weight 184 lbs 05/18/2025 BMI 35.93 kg/m2 05/18/2025 Encounters Encounter Location Date Provider Diagnosis [facility] [address] [place] [address] 05/18/2025 Jessica Black Pain in right toe(s) M79.674 ; Onychomycosis B35.1 ; Pain in left toe(s) M79.675 and Tinea pedis of both feet B35.[address] [address] 03/23/2025 Jessica Black Assessments Encounter Date Diagnosis (ICD Code) Assessment Notes Treatment Notes Treatment Clinical Notes Section Notes 05/18/2025 Pain in right toe(s) (ICD-10 - M79.674) 05/18/2025 Onychomycosis (ICD-10 - B35.1) 05/18/2025 Pain in left toe(s) (ICD-10 - M79.675) 05/18/2025 Tinea pedis of both feet (ICD-10 - B35.3) Patient Educated with: ATHKOIBE .pdf (ATHELETE .pdf) Plan Of Treatment Pending Test Test Name Order Date *Liver Function Test (LFT) 05/18/2025 Next Appt Details Provider Name:Jessica Marshall Marbin , 08/20/2025 11:30:00 AM, [address] [place] [address], [phone], Insurance Providers Payer Name Payer Address Payer Phone Subscriber Number Group Number Insured Name Patient Relationship to Insured Coverage Start Date Coverage End Date [employer] [address] [place] [address] [phone] [id number] PCP Radha Turner Self - patient is the insured
--- OUTSIDE RECORDS SUMMARY | 2025-05-18 11:43 | XMS_ITS | Encounter Summary ---
Author Organization [employer] Address [address] [facility] [address] [place] [address] Care Team Providers Care Nuclear Pharmacist Name Role Phone Unavailable Primary Care Provider Unavailabl e Encounter Details Date Type Department Care Team (Late st Contact Info) Description 11/16/2022 Abstract [facility] ADULT DENT[facility] [address] [place], [place] [phone] Gregorio Law DDS [address] [place], [place] [phone] Social History Tobacco Use Types Packs/Day Years [...]
[2025-05-18 12:33] LABS: Alanine Aminotransferase 18 U/L (0-31); Albumin Level 4.2 g/dL (3.5-5.0); Alkaline Phosphatase 110 U/L (39-117); Aspartate Amino Transferase 29 U/L (5-31); Total Protein 7.7 g/dL (6.5-8.0)
== END 2025-05-18 10:32 | disposition home or self-care (01) ==
LOC: HO.LAB 10:31
PROVIDERS: PCP Internal Medicine; Visit Provider Podiatrist
DX: B35.1 Tinea unguium (principal)
CPT/HCPCS: 36415; 80076

== ENCOUNTER 2025-06-17 07:18 | Day surgery (SDC) | payer MEDICARE, SELFPAY ==
--- OUTSIDE RECORDS SUMMARY | 2024-12-10 11:00 | XMS_ITS ---
Author Organization [facility] Address [address] [facility] [address] [place] [address] Care Team Providers Care Contract Attorney Name Role Phone Antony LAGOS, Yuliay Primary Care Provider Ronnie Menard [phone] REASON FOR VISIT Patient presents today for a recall colonoscopy Encounters Encounter Location Date Provider Diagnosis [facility] [address] [facility] [address] [place] [address] 12/10/2024 Ronnie Sharif Plan Of Treatment Next Appt Details Provider Name:Ronnie Sharif , 06/17/2025 10:30:00 AM, [address] [place] [address] , [place], [place], [phone], Progress Notes * DINORA BRISENODOB:1955 ( 70 yo F)Acc No.[id number]:12/10/2024 Progress Notes Patient: DINORA KAMARA Provider: Lucho Sharif MD :1955 A ge:69 Y S ex:Female Date:12/10/2024 Address:[address] [place] [phone] Pcp:Yuliya Hardy MD Subjective: * Chief Complaints: [...] 12/10/2024 Generated for Ameena george/Poly/Franklynitting on: 0 05/29/2025 01:27 PM EDT
--- OUTSIDE RECORDS SUMMARY | 2025-05-29 13:27 | XMS_ITS | Encounter Summary ---
Author Organization [employer] [facility] Address [address] [facility] [address] [place] [address] Care Team Providers Care Local Owner Operator Truck Driver Name Role Phone Unavailable Primary Care Provider Unavailabl e Encounter Details Date Type Department Care Team (Late st Contact Info) Description 11/16/2022 Abstract [facility] ADULT D[facility] [address] [place], [place] [phone] Gregorio Law DDS [address] [place], [place] [phone] Social History Tobacco Use Types Packs/Day Years [...]
--- OUTSIDE RECORDS SUMMARY | 2025-05-29 13:27 | XMS_ITS | Patient Health Record ---
Author Organization [facility]ara [facility] [place] Address [address] [place] [address] Care Team Providers Care Seo Associate Name Role Phone Antony LAGOS, Asma Primary Care Provider Jessica Graham Unavailable [phone] Allergies No Known Allergies Reason For Referral No Information Medications Medication SIG (Take, Route, Fr equency, Duration) Notes Start Date End Date Status Ketoconazole 2 % 1 application Apply a thin layer to externally to feet, even between toes Twice a day; Duration: 30 days Active Terbinafine HCl 250 MG 1 tablet Orally O nce a day for 7 days days then stop for 3 weeks repeat cycle; Duration: 90 days 05/21/2025 Active Immunizations Vaccine Route Administration Date Status [...] Provider Diagnosis [facility] [address] [place] [address] 05/18/2025 Jessica Black Pain in right toe(s) M79.674 ; Onychomycosis B35.1 ; Pain in left toe(s) M79.675 and Tinea pedis of both feet B35.3 [facility] [address] [place] [address] 03/23/2025 Jessica Zazueta [facility] [address] [place] [address] 05/19/2025 Jessica Zazueta Assessments Encounter Date Diagnosis (ICD Code) Assessment Notes Treatment Notes Treatment Clinical Notes Section Notes 05/18/2025 Pain in right toe(s) (ICD-10 - M79.674) 05/18/2025 Onychomycosis (ICD-10 - B35.1) Patient Educated with: FUNGUS NAIL INFECTIONS.pdf (FUNGUS NAIL INFECTIONS.pdf ) 05/18/2025 Pain in left toe(s) (ICD-10 - M79.675) 05/18/2025 Tinea pedis of both feet (ICD-10 - B35.3) Patient Educated with: ATHELETE .pdf (ATHELETE .pdf) Plan Of Treatment Pending Test Test Name Order Date *Liver Function Test (LFT) 05/18/2025 Next Appt Details Provider Name:Jessica Zazueta , 08/20/2025 11:30:00 AM, [address] [place] [address], [phone], Insurance Providers Payer Name Payer Address Payer Phone Subscriber Number Group Number Insured Name Patient Relationship to Insured Coverage Start Date Coverage End Date [employer] [address] [employer] [place] [phone] [id number] PCP Radha Turner Self - patient is the insured
--- OUTSIDE RECORDS SUMMARY | 2025-05-29 13:27 | XMS_ITS | Clinical Summary ---
Author Organization [employer] [facility] ity Address [address] [place] [address] Care Team Providers Care Freight Associate Name Role Phone Unavailable Primary Care [...]
[2025-06-15 13:01] VITALS: BMI 28.4
--- NOTE | 2025-06-16 09:01 | HO.ANESPROP2 ---
HPI - Anesthesia Eval Consult details Narrative: 70yo F for Colonoscopy PMFSH Active Problems Active Problems: All Active Problems Osteopenia (Acute) Colon cancer screening (Acute) Acute cystitis with hematuria (Acute) Obesity due to excess calories (Acute) Well woman exam (Acute) Overweight (BMI 25.0-29.9) (Acute) Pigmented purpuric dermatosis (Acute) Encounter for annual routine gynecological examination (Acute) Thrombocytopenia (Chronic) Neutropenia (Acute) Routine gynecological examination (Acute) COVID-19 (Acute) Vertigo (Acute) Encounter for general adult medical examination with abnormal findings (Acute) ASCUS with positive high risk HPV cervical (Acute) Past Medical History Medical History ASCUS with positive high risk HPV cervical Family History Family History Sister Liver cancer Brother Lung cancer Surgical History Surgical History H/O colonoscopy History of appendectomy Hx of tubal ligation Social History Social History Household Members: Spouse Housing: House Alcohol intake: never Patient Tobacco Use Status: Never used Tobacco e-Cigarette/Vaping Use: Never Used Have you been hit, kicked, punched, or otherwise hurt by someone within the past year? 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
[2025-06-17 07:29] VITALS: BP 147/90; PULSE 89; RESP 20; TEMP 36.1; O2SAT 98
[2025-06-17 07:31] VITALS: BMI 27.9
[2025-06-17] MEDS: Lactated Ringers 1,000 ML 100 ML IVCONT (07:54)
--- NOTE | 2025-06-17 07:59 | P.CONAN_ITS ---
[facility] Active Problems Active Problems: All Active Problems (Updated 04/09/25 @ 10:39 by Alexey Gao MD) Osteopenia (Acute) Colon cancer screening (Acute) Acute cystitis with hematuria (Acute) Obesity due to excess calories (Acute) Well woman exam (Acute) Overweight (BMI 25.0-29.9) (Acute) Pigmented purpuric dermatosis (Acute) Encounter for annual routine gynecological examination (Acute) Thrombocytopenia (Chronic) Neutropenia (Acute) Routine gynecological examination (Acute) COVID-19 (Acute) Vertigo (Acute) Encounter for general adult medical examination with abnormal findings (Acute) ASCUS with positive high risk HPV cervical (Acute) Past Medical History Medical History ASCUS with positive high risk HPV cervical Functional capacity: independent ambulation Patient : No Family History Family History Sister Liver cancer Brother Lung cancer Family history of problems with anesthesia: No Surgical History Surgical History H/O colonoscopy History of appendectomy Hx of tubal ligation History of Problems with Anesthesia: No Social History Social History Household Members: Spouse Housing: House Alcohol intake: never Patient Tobacco Use Status: Never used Tobacco e-Cigarette/Vaping Use: Never Used Current occupational status: retired 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 Cognitive needs: No Hearing needs: No Vision needs: Yes Meds Allergies Allergy/AdvReac Type Severity Reaction Status Date / Time No Known Allergies Allergy Verified 04/09/25 10:39 Active Medications: Current Medications Lactated Ringer's (Lr) 1,000 mls @ 100 mls/hr IVCONT .Q10H ADAM Last Admin: 06/17/25 07:54 Dose: 100 mls/hr Sodium Biphosphate/Sodium Phosphate (Sodium Phosphate,Berks-Dibasic 133 Ml Enema) 133 ml SC ONCE PRN PRN Reason: Poor Colonoscopy Prep Results Home Medications ?Medication ?Instructions ?Recorded ?Confirmed ?Last Taken ?Type ascorbic acid (vitamin C) 100 mg 500 mg PO DAILY 07/0506/15/25 Unknown History tablet (Vitamin C) meclizine 25 mg tablet 50 mg PO .qd PRN dizziness 0 06/15/25 06/15/25 Unknown History Exam Height,Weight and Vital Signs: Height 5 ft 7.5 in Weight 82.1 kg Last Vital Signs Temp 97 F 06/17/25 07:29 Pulse 89 06/17/25 07:29 Resp 20 06/17/25 07:29 BP 147/90 H 06/17/25 07:29 Pulse Ox 98 06/17/25 07:29 O2 Del Method Room Air 06/17/25 07:29 Airway Mallampati Class: II TM Dist: >3cm Neck ROM: Full Heart: RRR Lungs: CTA Assessment and Plan Assessment Anesthesia Assessment: Anesthesia Plan Discussed Final Anesthetic Review Family History of Problems with Anesthesia: No History of Problems with Anesthesia: No NPO: Yes ASA Class: II Final Preanesthetic Review: Meds/Allgs Chart Reviewed, Consent Obtained/Reviewed and Anes Risks/Benef Reviewed Patient Risk: Low Procedure Risk: Intermediate Anesthetic Plan Anesthetic Plan: MAC: Disposition: Standard PACU
[2025-06-17 09:49] VITALS: BP 93/62; PULSE 65; RESP 16; TEMP 36.2; O2SAT 98
--- NOTE | 2025-06-17 09:55 | P.BOP_ITS ---
Brief Operative Note Date of Service: 06/17/25 Pre-op diagnosis: Screening Post-op diagnosis: other (Diverticulosis) Procedure: Colonoscopy to the cecum and TI Surgeon: Ronnie Sharif MD Anesthesia: MAC Was an Latin American Studies Professor used for this Procedure?: No Estimated blood loss (mL): 0 Pathology: none sent Condition: stable Disposition: PACU
[2025-06-17 10:05] VITALS: BP 121/62; PULSE 74; RESP 16; O2SAT 98
[2025-06-17 10:20] VITALS: BP 126/53; PULSE 60; RESP 16; TEMP 36.3; O2SAT 98
--- NOTE | 2025-06-17 10:50 | OP_ITS ---
DATE OF SERVICE: 06/17/2025 SURGEON: Ronnie Sharif MD INDICATIONS: The patient presents for evaluation of colorectal cancer screening and personal history of tubular adenomas. Full consent has been obtained from her for this, including risks of bleeding and perforation. PREOPERATIVE DIAGNOSIS: POSTOPERATIVE DIAGNOSIS: PROCEDURE PERFORMED: Colonoscopy to cecum and terminal ileum. ESTIMATED BLOOD LOSS: COMPLICATIONS: ANESTHESIA: Medication used, monitored anesthesia care. ASSISTANTS: SPECIMENS: PREOPERATIVE DIAGNOSES: Colorectal cancer screening and personal history of tubular adenomas of the colon. POSTOPERATIVE DIAGNOSES: Colorectal cancer screening and personal history of tubular adenomas of the colon, diverticulosis, and internal hemorrhoids. DESCRIPTION OF PROCEDURE: The patient was placed in the left lateral decubitus position. The digital rectal exam revealed no abnormalities. The Olympus video pediatric colonoscope was entered into the rectum and advanced to the cecum. Advancement was somewhat difficult. Once in the cecum, I did identify normal-appearing cecal pouch with appendiceal orifice and a normal-appearing ileocecal valve. The terminal ileum was cannulated and appeared normal. The scope was withdrawn back in the colon. The entire cecum and ileocecal valve appeared normal. The scope was slowly withdrawn assessing all mucosal surfaces carefully. Preparation was excellent. I did not visualize any sign of polyps, colitis, nor angiodysplasia. There was a mild amount of sigmoid diverticulosis. In the rectum, scope was retroflexed visualizing internal hemorrhoids, but no other pathology. The rectal mucosa appeared normal. Scope was straightened and withdrawn from the patient. She tolerated the procedure well and was returned to the recovery area in stable condition. IMPRESSION: 1. Diverticulosis. 2. Internal hemorrhoids. PLAN: Given her previous history of tubular adenoma, I would recommend a followup coloscopy in 5 years. She will otherwise see me on a p.r.n. basis. MD RODNEY Moses/KELLY / [phone]
== END 2025-06-17 11:08 | disposition home or self-care (01) ==
PROVIDERS: PCP Internal Medicine; Visit Provider Internal Medicine
PROC: 0DJD8ZZ Inspection of Lower Intestinal Tract, Via Natural or Artificial Opening Endoscopic (ICD-10-PCS; CPT 45378; principal; 2025-06-17 08:30)
DX: Z12.11 Encounter for screening for malignant neoplasm of colon (principal); K57.30 Diverticulosis of large intestine without perforation or abscess without bleeding; K64.8 Other hemorrhoids; Z86.0101 Personal history of adenomatous and serrated colon polyps; Z79.899 Other long term (current) drug therapy
CPT/HCPCS: G0105; J2003; J2704